=== PATIENT | female | born 1995 | race Caucasian/White ===

== ENCOUNTER 2019-09-18 18:16 | Emergency (ER) | payer SELFPAY ==
[2019-09-18 18:18] VITALS: BP 119/84; PULSE 147; TEMP 36.1; O2SAT 96
--- NOTE | 2019-09-18 19:36 | ECG_ITS ---
Measurements Intervals [place] Rate: 86 P: 65 OR: 106 QRS: 67 QRSD: 78 T: 53 QT: 373 QTc: 447 SINUS RHYTHM WITH SINUS ARRHYTHMIA WITH SHORT OR INTERVAL Compared to ECG 01/16/2017 22:34:29 Sinus tachycardia no longer present Electronically Signed On 09-19-2019 17:10:30 CDT by Dave Self M.D. [id number]
--- NOTE | 2019-09-18 19:37 | XR_ITS ---
WS: [id number] XR chest 1V portable [id number] REASON FOR EXAM: Tachycardia FINDINGS: Nipple rings are seen bilaterally. The lung antonio are adequately aerated. The heart is not enlarged. The hilum and apices normal. No pneumonia, pleural effusion, pulmonary edema, no pneumothorax or mass effects. The hilum and apices show no gross abnormalities. XR/XR chest 1V portable [id number] IMPRESSION: Negative chest for active pathology.
--- NOTE | 2019-09-18 20:00 | CTR_ITS ---
PROCEDURE INFORMATION: Exam: CT Abdomen And Pelvis With Contrast Exam date and time: 09/18/2019 9:08 PM Age: 24 years old Clinical indication: Nausea and vomiting; Abdominal pain; Localized; Upper; Prior surgery; Surgery date: 6+ months; Surgery type: Gb TECHNIQUE: Imaging protocol: Computed tomography of the abdomen and pelvis with intravenous contrast. Radiation optimization: All CT scans at this facility use at least one of these dose optimization techniques: automated exposure control; mA and/or kV adjustment per patient size (includes targeted exams where dose is matched to clinical indication); or iterative reconstruction. Contrast material: OMNI 300; Contrast volume: 75 ml; Contrast route: IV; COMPARISON: CT abdomen pelvis w con* [id number] 09/03/2016 8:30 PM RADIATION DOSE METRICS: Total DLP: 516.11 mGy-cm FINDINGS: Liver: Normal. No mass. Gallbladder and bile ducts: Cholecystectomy. Mild biliary dilation is likely chronic. Pancreas: Normal. No ductal dilation. Spleen: Normal. No splenomegaly. Adrenals: Normal. No mass. Kidneys and ureters: Right kidney punctate nonobstructive calyceal stone. Stomach and bowel: Unremarkable. No obstruction. No mucosal thickening. Appendix: No evidence of appendicitis. Intraperitoneal space: Unremarkable. No free air. No significant fluid collection. Vasculature: Unremarkable. No abdominal aortic aneurysm. Lymph nodes: Unremarkable. No enlarged lymph nodes. Bladder: Unremarkable as visualized. Reproductive: Bilateral ovarian cysts measuring up to 2.7 cm on the right. Bones/joints: Unremarkable. No acute fracture. Soft tissues: Unremarkable. CT/CT abdomen pelvis w con* [id number] IMPRESSION: 1. Negative for acute inflammatory process. 2. Cholecystectomy. 3. Mild biliary dilation is likely chronic. 4. Bilateral ovarian cysts measuring up to 2.7 cm on the right. 5. Right kidney punctate nonobstructive calyceal stone. Radiation Dose CTDIVOL = (mGy): DLP = 516.11 (mGy-cm)
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
[2019-09-18 20:20] LABS: Basophils % 0.2 %; Hematocrit 47.4 % (37.0-47.0); Lymphocytes # 0.4 10^3/uL (0.8-4.8); Lymphocytes % 3.4 %; Mean Corpuscular HGB Conc 33.8 g/dL (30.0-36.0); Mean Corpuscular Hemoglobin 28.8 pg (28.0-34.0); Mean Corpuscular Volume 85.3 fL (81-99); Mean Platelet Volume 10.8 fL (7.4-10.4); Monocytes # 0.8 10^3/uL (0.2-0.9); Monocytes % 6.4 %; Neutrophils # 10.8 10^3/uL (1.8-7.7); Neutrophils % 89.7 %; Nucleated Red Blood Cells % 0 %; Platelet Count 310 10^3/cmm (130-400); Red Blood Count 5.56 10^6/uL (4.1-5.3); Red Cell Distribution Width 12.7 % (12.1-15.1); White Blood Count 12.1 10^3/uL (4.0-10.0)
[2019-09-18] MEDS: ondansetron 2 mg/ML SDV 2 mL 4 MG IVP (20:41)
[2019-09-18] MEDS: sodium chloride 0.9% 1,000 ML 999 ML IV ×2 (20:41→23:27)
[2019-09-18 20:42] VITALS: RESP 16; O2SAT 100
[2019-09-18] MEDS: morphine 4 mg/mL SDV 1 mL IVP (20:42)
[2019-09-18 20:51] LABS: Lactic Sepsis W/Reflex 2.6 mmol/L (0.5-2.2)
[2019-09-18 20:55] LABS: Alanine Aminotransferase 169 U/L (0-33); Albumin Level 5.3 g/dL (3.5-5.2); Alkaline Phosphatase 87 IU/L (35-105); Anion Gap 26.9 (5-19); Aspartate Amino Transferase 124 U/L (0-32); Blood Urea Nitrogen 11 mg/dL (6-20); Calcium 9.8 mg/dL (8.5-10.5); Carbon Dioxide 19 mmol/L (22-29); Chloride 94 mmol/L (98-107); Globulin 2.8 g/dL (1.3-4.6); Glomerular Filtration Rate 89.7 mL/min (90-130); Glucose 90 mg/dL (65-115); Lipase 12 U/L (13-60); Osmolality Calculated 278 mOsm/kg (285-295); Potassium 3.9 mmol/L (3.5-5.1); Sodium 136 mmol/L (136-145); Total Bilirubin 1.8 mg/dL (0.15-1.2); Total Protein 8.1 g/dL (6.6-8.7)
[2019-09-18 21:00] LABS: HCG, Serum Qual Negative (Negative)
[2019-09-18 21:03] VITALS: BP 118/69; PULSE 62; RESP 18; O2SAT 99
[2019-09-18] MEDS: iohexol 300 mg/mL 100 mL Btl IV (21:19)
--- NOTE | 2019-09-18 21:44 | MRR_ITS ---
PROCEDURE INFORMATION: Exam: MR Abdomen Without Contrast Exam date and time: 09/18/2019 9:45 PM Age: 24 years old Clinical indication: Abdominal pain; Additional info: Upper abd pain/elevated lfts/enlarged cbd TECHNIQUE: Imaging protocol: MR of the abdomen without contrast. COMPARISON: CT abdomen pelvis w con* [id number] 09/18/2019 9:17 PM FINDINGS: Liver: No mass. Gallbladder and bile ducts: The extrahepatic bile ducts are normal with the common bile duct measuring 5 mm in diameter. Trace diffuse intrahepatic ductal prominence. No ductal filling defect. Cholecystectomy. Pancreas: Unremarkable. No ductal dilation. Spleen: Unremarkable. No splenomegaly. Adrenals: Unremarkable. No mass. Kidneys and ureters: Unremarkable. No solid mass. No hydronephrosis. Stomach and bowel: Visualized stomach and intestines are unremarkable. Intraperitoneal space: No free fluid. Arteries: No abdominal aortic aneurysm. Bones/joints: Unremarkable. Soft tissues: Unremarkable. MR/MR MRCP [id number] IMPRESSION: 1. Trace intrahepatic ductal dilatation with normal extrahepatic bile ducts. No filling defect. This is most likely normal reservoir effect following cholecystectomy.
[2019-09-18 22:00] LABS: Reflex Lactate Order REFLEX LACTIC ORDERD
[2019-09-18 22:48] LABS: Acetaminophen 24.9 ug/mL (10-30)
[2019-09-18 22:53] LABS: Alcohol Level < 10 mg/dL (0-10); Salicylate < 0.3 mg/dL (3-10)
[2019-09-18 23:09] LABS: Hepatitis A Antibody IgM Non-Reactive (Nonreactive); Hepatitis B Core AB, Total Non-Reactive (Nonreactive); Hepatitis B Surface AB 3.5 (0-8.5); Hepatitis B Surface Antigen Non-Reactive (Nonreactive); Hepatitis C Virus Antibody Non-Reactive (Nonreactive)
[2019-09-18 23:26] VITALS: BP 113/71; PULSE 88; RESP 16; O2SAT 99
[2019-09-18 23:31] LABS: ABG PCO2 34.3 mmHg (35-45); ABG PH Result 7.33 (7.35-7.45); Alveolar-Arterial Oxygen Gradi 14.3 mmHg (5-10); Arterial Blood Gas Hematocrit 45.5 % (37-47); Base Excess ABG -6.8 mmol/L (-2.0-2.0); Blood Gas Allen Test Pos; Blood Gas Sample Site Radial, left; Blood Gas Sample Type Arterial; Carboxyhemoglobin 0.4 %THgb (0.4-20.1); HCO3 ABG 18.2 mmol/L (22-26); HGB O2 Sat 96.5 % (95-100); Ionized Calcium Level - ABG 1.2 mmol/L (1.1-1.4); Methemoglobin 0.9 % (0.4-1.5); Oxygen Saturation ABG 97.7; PO2 ABG 91.6 mmHg (80.0-100.0); Potassium Level - ABG 3.7 mmol/L (3.5-5.0); Total Hemoglobin 14.8 g/dL (12-16)
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
[2019-09-19 00:01] LABS: Lactic Acid level (Lactate) 1.9 mmol/L (0.5-2.2)
[2019-09-19 00:09] LABS: Amphetamines Screen Urine Negative (Negative); Barbiturates Screen Urine Negative (Negative); Benzodiazepines Screen Urine Negative (Negative); Cocaine Screen Urine Negative (Negative); Opiate Screen Urine Positive (Negative); PCP Screen Urine Negative (Negative); THC Screen Urine Negative (Negative)
[2019-09-19 00:11] LABS: Add Urine Microscopic? YES; Bacteria Urine TRACE; Bilirubin Urine Neg (NEGATIVE); Blood Urine Neg (Negative); Glucose Urine UA Norm (Normal); Ketones Urine 3+ (Negative); Leukocyte Esterase Urine Negative (Negative); Nitrate Urine Negative (Negative); Protein Urine 1+ (Negative); RBC Urine 0-4 /hpf (0-2); Squamous Epithelial Cell Urine 0-4 (0-5); Urine Appearance Clear (CLEAR); Urine Color Yellow (Yellow); Urobilinogen Urine 1 mg/dL (Negative); WBC Urine 0-4 /hpf (0-5); pH Urine 5 (5-7)
[2019-09-19 00:25] LABS: Ketone (Acetest) Serum Negative (Negative)
[2019-09-19 00:29] LABS: Alanine Aminotransferase 168 U/L (0-33); Albumin Level 4.3 g/dL (3.5-5.2); Alkaline Phosphatase 70 IU/L (35-105); Anion Gap 18.8 (5-19); Aspartate Amino Transferase 110 U/L (0-32); Blood Urea Nitrogen 8 mg/dL (6-20); Calcium 8.1 mg/dL (8.5-10.5); Carbon Dioxide 20 mmol/L (22-29); Chloride 102 mmol/L (98-107); Globulin 2.3 g/dL (1.3-4.6); Glucose 95 mg/dL (65-115); Osmolality Calculated 280 mOsm/kg (285-295); Potassium 3.8 mmol/L (3.5-5.1); Sodium 137 mmol/L (136-145); Total Bilirubin 1.6 mg/dL (0.15-1.2); Total Protein 6.6 g/dL (6.6-8.7)
--- NOTE | 2019-09-19 00:43 | PM.EVENT ---
Event Note Event Note: Patient left SATYA Amanda is a 24 year old female who has a history of chronic abdominal pain came in today with chief complaint of worsening abdominal pain. Patient is stating that she did not experience any new inciting event for aggravation of pain, she has had 7-8 episodes of nausea and vomiting since yesterday, she did not spike any fever, she did not notice any dysuria, diarrhea or constipation. She is not able to tell me if there was any association of food intake with this abdominal pain. Cholecystectomy was done to see if that would relieve her chronic bone pain which has been unsuccessful so far. Diagnostics in the ER revealed dehydration, high lactic acid no source of infection, CT abdomen was unremarkable, MRCP did not reveal any acute indication for ERCP. Patient is denying recent antibiotic use, she is sexually active, she is not , CT abdomen positive for right ovarian cyst no active signs of peritonitis on physical exam in the ER At the time of my interview she was calm and cooperative, no active abdominal pain, she was able to tolerate her diet. Decision was made to observe her overnight and hydrate her with IV fluids. Patient decided to leave AGAINST MEDICAL ADVICE and stated that she would prefer to stay home and increase her fluid intake. ER doctor was notified
[2019-09-19] MEDS: ondansetron 4 MG Tablet PO (00:55)
[2019-09-19 00:56] VITALS: BP 122/68; PULSE 72; RESP 16; O2SAT 98
[2019-09-19 03:40] LABS: H. Pylori IgG Antibody Negative (Negative)
== END 2019-09-19 01:15 | disposition left against medical advice (07) ==
PROVIDERS: Physician Assistant; Emergency Provider Emergency Medicine; Family Provider Family Medicine
DX: E87.2 Acidosis (principal); E86.0 Dehydration; R11.10 Vomiting, unspecified; Z53.21 Procedure and treatment not carried out due to patient leaving prior to being seen by health care provider; J45.909 Unspecified asthma, uncomplicated; F17.210 Nicotine dependence, cigarettes, uncomplicated
CPT/HCPCS: 12345; 36415; 36600; 71045; 74177; 74181; 80051; 80053; 80306; 80307; 81001; 82009; 82810; 83605; 83690; 83986; 84703; 85025; 86677; 86705; 86706; 86709; 86803; 87340; 93005; 96361; 96374; 96375; 99284; J2270; J2405; J7030; Q0162; Q9967

== ENCOUNTER 2020-01-03 13:31 | Emergency (ER) | payer SELFPAY ==
[2020-01-03 13:44] VITALS: BP 113/75; PULSE 81; RESP 16; TEMP 36.8; O2SAT 99; BMI 21.9
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
[2020-01-03 15:18] LABS: Basophils % 0.4 %; Eosinophils % 0.9 %; Hematocrit 40.5 % (37.0-47.0); Hemoglobin 13.1 g/dL (11.5-15.3); Lymphocytes # 1.1 10^3/uL (0.8-4.8); Lymphocytes % 23.9 %; Mean Corpuscular HGB Conc 32.3 g/dL (30.0-36.0); Mean Corpuscular Hemoglobin 28.1 pg (28.0-34.0); Mean Corpuscular Volume 86.7 fL (81-99); Mean Platelet Volume 10.8 fL (7.4-10.4); Monocytes # 0.4 10^3/uL (0.2-0.9); Monocytes % 7.8 %; Neutrophils # 2.98 10^3/uL (1.8-7.7); Neutrophils % 66.8 %; Nucleated Red Blood Cells % 0 %; Platelet Count 230 10^3/cmm (130-400); Red Blood Count 4.67 10^6/uL (4.1-5.3); Red Cell Distribution Width 12.3 % (12.1-15.1); White Blood Count 4.5 10^3/uL (4.0-10.0)
[2020-01-03 15:53] LABS: HCG Qualitative Urine. Negative (Negative)
[2020-01-03 15:54] LABS: Add Urine Microscopic? YES; Bilirubin Urine Neg (NEGATIVE); Blood Urine Neg (Negative); Glucose Urine UA Norm (Normal); Ketones Urine 1+ (Negative); Leukocyte Esterase Urine 1+ (Negative); Nitrate Urine Negative (Negative); Protein Urine Neg (Negative); Specific Gravity, Urine 1.005 (1.005-1.030); Urine Appearance Hazy (CLEAR); Urine Color Yellow (Yellow); Urobilinogen Urine Norm (Negative); pH Urine 7 (5-7)
[2020-01-03 16:03] LABS: RBC Urine 0-4 /hpf (0-2)
[2020-01-03 16:04] LABS: Add Urine Culture? Yes; Bacteria Urine 2+; Mucus Urine TRACE
[2020-01-03 16:49] VITALS: BP 111/72; PULSE 79; RESP 18; O2SAT 99
== END 2020-01-03 16:50 | disposition home or self-care (01) ==
PROVIDERS: Nurse Practitioner Family; Emergency Provider Emergency Medicine
DX: N92.6 Irregular menstruation, unspecified (principal); F17.210 Nicotine dependence, cigarettes, uncomplicated
CPT/HCPCS: 12345; 36415; 81001; 81025; 85025; 85610; 86850; 86900; 87077; 87086; 87186; 99282

== ENCOUNTER 2020-01-04 17:35 | Emergency (ER) | payer SELFPAY ==
[2020-01-04 17:40] VITALS: BP 114/75; PULSE 83; RESP 18; TEMP 37; O2SAT 99; BMI 21.9
--- NOTE | 2020-01-04 18:26 | US_ITS ---
WS: [id number] EXAM: TRANSABDOMINAL PELVIC SONOGRAM DATE OF EXAMINATION: 01/04/2020, 1930 hours COMPARISON: Pelvic sonogram from 11/10/2016. HISTORY: 24-year-old with pelvic pain and bleeding since 12/21/2019. 1 para 0 FINDINGS: Uterus is estimated at 7.4 x 3.4 x 4.5 cm in size. Anteverted in position. Endometrial stripe is 5.8 mm in thickness. Right ovary is 3.7 x 2.1 x 2.8 cm in size. Left ovary is 2.95 x 1.7 x 2.2 cm in size. Color flow and spectral Doppler demonstrates arterial flow within both ovaries. No free fluid in the cul-de-sac. US/ pelvic limited [id number] IMPRESSION: Normal appearance to the uterus and ovaries. Endometrial stripe 5.8 mm in thickness. No free fluid.
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
[2020-01-04 18:28] LABS: Basophils % 0.6 %; Eosinophils # 0.1 10^3/uL (0.0-0.8); Eosinophils % 1.4 %; Hematocrit 38.5 % (37.0-47.0); Hemoglobin 12.8 g/dL (11.5-15.3); Lymphocytes # 1.3 10^3/uL (0.8-4.8); Lymphocytes % 26.9 %; Mean Corpuscular HGB Conc 33.2 g/dL (30.0-36.0); Mean Corpuscular Hemoglobin 28.7 pg (28.0-34.0); Mean Corpuscular Volume 86.3 fL (81-99); Mean Platelet Volume 10.9 fL (7.4-10.4); Monocytes # 0.5 10^3/uL (0.2-0.9); Monocytes % 9.7 %; Neutrophils # 2.98 10^3/uL (1.8-7.7); Neutrophils % 61.2 %; Nucleated Red Blood Cells % 0 %; Platelet Count 232 10^3/cmm (130-400); Red Blood Count 4.46 10^6/uL (4.1-5.3); Red Cell Distribution Width 12.4 % (12.1-15.1); White Blood Count 4.9 10^3/uL (4.0-10.0)
[2020-01-04 19:03] LABS: Alanine Aminotransferase 11 U/L (0-33); Albumin Level 4.6 g/dL (3.5-5.2); Alkaline Phosphatase 63 IU/L (35-105); Anion Gap 12.6 (5-19); Aspartate Amino Transferase 12 U/L (0-32); Blood Urea Nitrogen 8 mg/dL (6-20); Calcium 8.7 mg/dL (8.5-10.5); Carbon Dioxide 26 mmol/L (22-29); Chloride 104 mmol/L (98-107); Creatinine Clr Calc Pharmacy 150.2773; Globulin 2.6 g/dL (1.3-4.6); Glomerular Filtration Rate 154.3 mL/min (90-130); Glucose 94 mg/dL (65-115); Osmolality Calculated 284 mOsm/kg (285-295); Potassium 3.6 mmol/L (3.5-5.1); Sodium 139 mmol/L (136-145); Total Bilirubin 0.3 mg/dL (0.15-1.2); Total Protein 7.2 g/dL (6.6-8.7)
[2020-01-04 20:27] LABS: Add Urine Microscopic? YES; Bilirubin Urine Neg (NEGATIVE); Blood Urine 2+ (Negative); Glucose Urine UA Norm (Normal); Ketones Urine Negative (Negative); Leukocyte Esterase Urine Negative (Negative); Nitrate Urine Positive (Negative); Protein Urine Neg (Negative); Urine Color Yellow (Yellow); Urobilinogen Urine Norm (Negative); pH Urine 5 (5-7)
[2020-01-04 20:38] LABS: Add Urine Culture? No; Bacteria Urine 4+; Mucus Urine 2+; RBC Urine 0-4 /hpf (0-2); Squamous Epithelial Cell Urine 15-25 (0-5); WBC Urine 0-4 /hpf (0-5)
== END 2020-01-04 21:07 | disposition home or self-care (01) ==
PROVIDERS: Emergency Provider Nurse Practitioner Family
DX: N93.8 Other specified abnormal uterine and vaginal bleeding (principal); N30.90 Cystitis, unspecified without hematuria; F17.210 Nicotine dependence, cigarettes, uncomplicated
CPT/HCPCS: 12345; 76857; 80053; 81001; 85025; 99282; 99283

== ENCOUNTER 2020-03-24 14:33 | Emergency (ER) | payer SELFPAY ==
[2020-03-24 14:44] VITALS: BP 110/74; PULSE 100; RESP 16; TEMP 36.6; O2SAT 100; BMI 20.3
== END 2020-03-24 16:48 | disposition left against medical advice (07) ==
PROVIDERS: Emergency Provider Nurse Practitioner Family
DX: Z53.21 Procedure and treatment not carried out due to patient leaving prior to being seen by health care provider (principal)
CPT/HCPCS: 99281

== ENCOUNTER → 2020-05-13 13:36 | Outpatient (BNVA) | payer SELFPAY | PROVIDERS: Visit Provider Nurse Practitioner Family | DX: Z34.90 Encounter for supervision of normal pregnancy, unspecified, unspecified trimester (principal); Z3A.00 Weeks of gestation of pregnancy not specified | CPT/HCPCS: 81025 ==

== ENCOUNTER → 2020-05-29 11:40 | Outpatient (BNVA) | payer MEDICAID, SELFPAY | PROVIDERS: Visit Provider Nurse Practitioner Women's Health | DX: Z34.80 Encounter for supervision of other normal pregnancy, unspecified trimester (principal); Z34.01 Encounter for supervision of normal first pregnancy, first trimester; J45.20 Mild intermittent asthma, uncomplicated | CPT/HCPCS: 84315; 87077; 87086; 87184 ==

== ENCOUNTER → 2020-06-11 13:47 | Outpatient (BNVA) | payer MEDICAID, SELFPAY | PROVIDERS: Visit Provider Obstetrics & Gynecology | DX: Z34.80 Encounter for supervision of other normal pregnancy, unspecified trimester (principal) | CPT/HCPCS: 80307; 84315; 85027; 86592; 86762; 86803; 86850; 86900; 87077; 87086; 87184; 87340; 87806 ==

== ENCOUNTER → 2020-07-15 11:00 | Outpatient (BNVA) | payer MEDICAID, SELFPAY | PROVIDERS: Visit Provider Obstetrics & Gynecology | DX: O23.40 Unspecified infection of urinary tract in pregnancy, unspecified trimester (principal); Z3A.00 Weeks of gestation of pregnancy not specified | CPT/HCPCS: 84315; 87491; 87591; 87661; 88175 ==

== ENCOUNTER 2020-12-23 22:50 | Outpatient (CLI) | payer BC, MEDICAID, SELFPAY ==
[2020-12-23 22:50] VITALS: BMI 21.2
[2020-12-23 23:08] VITALS: BP 128/82; PULSE 82; RESP 15; TEMP 36.4
[2020-12-23 23:32] LABS: Nitrazine Paper, PH Negative
[2020-12-23 23:35] VITALS: BP 128/82; PULSE 82; RESP 15; TEMP 36.4
== END 2020-12-23 23:35 | disposition home or self-care (01) ==
LOC: OPOB 22:57 → OBGYN 22:58
PROVIDERS: Visit Provider Family Medicine
DX: O26.899 Other specified pregnancy related conditions, unspecified trimester (principal); Z3A.00 Weeks of gestation of pregnancy not specified; N89.8 Other specified noninflammatory disorders of vagina
CPT/HCPCS: 59025; 83986; 99211

== ENCOUNTER 2021-01-11 19:22 | Inpatient (IN) | payer BC, MEDICAID, SELFPAY ==
[2021-01-11] VITALS (7 sets, daily range): BP systolic 119–146; BP diastolic 66–93; PULSE 62–90; RESP 15; TEMP 36.6; O2SAT 100; BMI 21.7
[2021-01-11 20:04] LABS: Basophils # 0.1 10^3/uL (0.0-0.1); Basophils % 0.8 %; Eosinophils # 0.1 10^3/uL (0.0-0.8); Eosinophils % 0.8 %; Hemoglobin 10.3 g/dL (11.5-15.3); Lymphocytes # 1.4 10^3/uL (0.8-4.8); Lymphocytes % 20.8 %; Mean Corpuscular HGB Conc 32.2 g/dL (30.0-36.0); Mean Corpuscular Hemoglobin 25.6 pg (28.0-34.0); Mean Corpuscular Volume 79.4 fl (81-99); Mean Platelet Volume 12.9 fL (7.4-10.4); Monocytes # 0.5 10^3/uL (0.2-0.9); Monocytes % 7.2 %; Neutrophils # 4.66 10^3/uL (1.8-7.7); Neutrophils % 70.1 %; Nucleated Red Blood Cells % 0 %; Platelet Count 174 10^3/cmm (130-400); Red Blood Count 4.03 10^6/uL (4.1-5.3); Red Cell Distribution Width 13.4 % (12.1-15.1); White Blood Count 6.6 10^3/uL (4.0-10.0)
[2021-01-11] MEDS: miSOPROStol 100 mcg tablet 25 MCG VAGINAL (20:09)
[2021-01-11] MEDS: dextrose 5%-lactated ringers 1,000 ML 125 ML IV (20:09)
[2021-01-12] VITALS (55 sets, daily range): BP systolic 83–192; BP diastolic 47–101; PULSE 56–130; RESP 17; TEMP 37.1; O2SAT 99–100
[2021-01-12] MEDS: miSOPROStol 100 mcg tablet 25 MCG VAGINAL (00:16)
[2021-01-12] MEDS: lactated ringers 1,000 ML 999 ML IV ×3 (02:01→07:33)
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
--- NOTE | 2021-01-12 03:29 | P.ANES_ITS ---
Anesthesia Procedures Procedure/Date: 01/12/21 Epidural: Time Out Performed: Yes Consents Signed: Procedure Consent Consent: from patient, risks and benefits reviewed and patient agrees to proceed Lumbar Level: L3-L4 Epidural position: sitting Epidural procedure: sterile prep of area, 1% lidocaine to numb the area, 18 g needle (DONN at 5cm), n eg for paresthesia, test dose given, 1.5% xylocaine 1:200k epi (5cc), 0.2% Ropivacaine bolus ml (4cc and Fentanyl 100mcg), placed PCEA, no systemic response, sterile dressing applied, L.U.D. no apparent complications and 0.2% Ropiavacaine @ mls/hr (11 cc/hour)
[2021-01-12] MEDS: ondansetron 2 mg/ML SDV 2 mL 4 MG IVP (09:00)
--- NOTE | 2021-01-12 10:00 | PM.OPHPUD ---
Labor & Delivery H&P Update Date of Procedure: January 12, 2021 Date H&P Performed: 01/08/21 H&P update information: I have reviewed H&P completed within last 30 days, I have examined patient prior to procedure and No changes to prior documentation Admission Diagnosis: Preop diagnosis: 40-week female presenting for induction due to postdates Related Problem List Diagnoses (1) 40 weeks gestation of :
--- NOTE | 2021-01-12 10:02 | P.PCNOB_ITS ---
Delivery Note: Date of delivery: January 12, 2021 Pre-delivery diagnoses: 25-year-old 2 para 0-0-1-0 at 40 weeks presenting for induction. Post-delivery diagnoses: Status post spontaneous vaginal delivery Procedure: Spontaneous vaginal delivery Op report anesthesia: Epidural Estimated blood loss (mL): 100 Pre-Delivery Course: The patient presented to the hospital the night prior to she was given Cytotec 25 mcg x 2 per vagina. She was GBS negative. Her blood type is O+. An amniotomy was performed. The remainder of her labs were within normal limits. She then progressed to complete without difficulty. . Delivery: DELIVERY: The patient progressed to complete without difficulty. She delivered a male with a weight of 7 pounds 7 ounces with Apgars of 9, 9. The baby was delivered from the MICHAEL position and placed on the mother's abdomen. The cord was then clamped and cut 1 minute after delivery. There was no nuchal cord. There was no meconium. The placenta and 3 vessel cord were delivered i ntact shortly thereafter. The perineum and vaginal vault were carefully examined. A periurethral laceration was noted which was not repaired. Both the mother and the baby were in stable condition. Post-Delivery Status: Good A&P Assessment and plan (1) 40 weeks gestation of : Status: Acute (2) Spontaneous vaginal delivery: Status: Acute Coding Level of Care Code Acute Land Acquisition Analyst for Chg Fwd Diagnoses 40 weeks gestation of Z3A.40 Spontaneous vaginal delivery O80
[2021-01-12] MEDS: benzocaine-menthol 78 gm Canister 1 SPRAY TOPICAL (12:54)
[2021-01-12] MEDS: lanolin oint 7 gm 1 APPLIC TOPICAL (12:55)
[2021-01-12] MEDS: ibuprofen 800 mg tablet PO ×2 (14:46→21:18)
[2021-01-12] MEDS: docusate sodium 100 mg Capsule PO (17:53)
[2021-01-12 22:17] LABS: Hematocrit 31.6 % (37.0-47.0); Mean Corpuscular HGB Conc 31.6 g/dL (30.0-36.0); Mean Corpuscular Hemoglobin 25.6 pg (28.0-34.0); Mean Corpuscular Volume 80.8 fl (81-99); Mean Platelet Volume 12.7 fL (7.4-10.4); Platelet Count 143 10^3/cmm (130-400); Red Blood Count 3.91 10^6/uL (4.1-5.3); Red Cell Distribution Width 13.8 % (12.1-15.1); White Blood Count 11.9 10^3/uL (4.0-10.0)
[2021-01-13 03:48] VITALS: BP 124/80; PULSE 80
--- NOTE | 2021-01-13 06:35 | PM.OBGYDC ---
Discharge Providers BAILING MACHINE OPERATOR Date of Admission: 01/11/21 19:22 Date of Discharge: 01/13/21 Attending Provider at Admission: Johnathan Mi MD Attending Provider at Discharge: Johnathan Mi MD Diagnoses at Discharge Discharge Diagnosis (1) 40 weeks gestation of : Status: Acute (2) Spontaneous vaginal delivery: Status: Acute Reason for Visit Reason for Visit: Scheduled Induction Hospital Course Hospital Course The patient presented to the hospital for induction due to postdates. She is placed on Cytotec 25 mcg per vagina x2. An amniotomy was performed. She then progressed to complete and had an unremarkable delivery of a healthy appearing male . Her course was unremarkable. Her bleeding was within normal limits. Her pain was well controlled. She bottle-fed and breast-fed. Her breast-feeding appeared to be improving during her hospital stay. Information Peripartum Data: Delivery Method: Vaginal Physical Exam Narrative: EXAM NARRATIVE: The patient is alert. She appears comfortable. Her heart has a regular rate and rhythm with no murmurs appreciated. Lungs are clear to auscultation bilaterally. Her fundus is firm and below the umbilicus. Urinary Catheter Management^: Pham: Cath Placed During This Visit: yes Reason for Continuing Indwelling Catheter: Accurate Measurement of Urinary Output in Critically Ill Patients Urinary Catheter Date of Insertion: 01/12/21 Urinary Catheter Time of Insertion: 03:50 Discharge Data Data Completed and Pending: Labs from last 24 hours 01/12/21 22:00 WBC 11.9 H RBC 3.91 L Hgb 10.0 L Hct 31.6 L MCV 80.8 L MCH 25.6 L MCHC 31.6 RDW 13.8 Plt Count 143 MPV 12.7 H Vitals: Last Vital Signs Temp 98.8 F 01/12/21 06:31 Pulse 80 01/13/21 03:48 Resp 17 01/12/21 10:12 BP 124/80 01/13/21 03:48 Pulse Ox 99 01/12/21 03:34 Discharge Plan Discharge Patient Disposition: Home Condition: Stable Prescriptions: New ibuprofen 800 mg Tablet 800 mg PO TID Qty: 45 RF: 0 Continued prenat.vits,cristy,pkg-dplf-zdrma Tablet 1 tab PO DAILY RF: 0 Discharge Orders: Discharge Order (Routine); Ordered 01/13/21 Ordered By: Johnathan Mi Referrals: Johnathan Mi MD [Physician] - 6 Weeks Discharge Diet: Usual diet Discharge Activity: Limit activity as instructed Patient Instructions: Opioid Safety Discharge Attestations BAILING MACHINE OPERATOR Time Spent in Discharge Care*: less than 30 min Specific Discharge Activities: Specific discharge activities: educating patient and educating and/or supporting family/caregiver Coding Level of Care Code Acute Information Technology Administrator for Chg Fwd Diagnoses 40 weeks gestation of Z3A.40 Spontaneous vaginal delivery O80
--- NOTE | 2021-01-13 08:00 | ANE.PACU2 ---
Inpatient post-anesthesia follow up: Airway intact: Yes Vital signs: Temperature 98.6 F Pulse Rate 100 Respiratory Rate 17 Blood Pressure 128/85 Pulse Oximetry 99 Oxygen Delivery Me thod Room Air Oxygen Flow Rate 10 Fraction of Inspir ed Oxygen Hydration adequate: Yes Nausea and vomiting: No Pain level: 2 Mental status: Baseline
[2021-01-13 12:07] VITALS: BP 128/85; PULSE 100
[2021-01-13 13:37] VITALS: BP 128/85; PULSE 100; RESP 17; TEMP 37
== END 2021-01-13 12:30 | disposition home or self-care (01) | DRG 807 ==
LOC: OPOB 19:26 → OBGYN 19:26
PROVIDERS: Admitting Provider Family Medicine; Visit Provider Family Medicine
DX: O48.0 Post-term pregnancy (principal); Z37.0 Single live birth; Z3A.40 40 weeks gestation of pregnancy; O99.334 Smoking (tobacco) complicating childbirth; F17.290 Nicotine dependence, other tobacco product, uncomplicated
CPT/HCPCS: 12345; 51702; 59025; 59409; 85025; 85027; J2405; J2795; J3010

== ENCOUNTER 2022-01-06 17:30 | Emergency (ER) | payer BC, MEDICAID, SELFPAY ==
[2022-01-06 17:37] VITALS: PULSE 97; RESP 16; TEMP 36.8; O2SAT 98
--- NOTE | 2022-01-06 17:42 | ED_ITS ---
HPI - COVID General: Chief Complaint: COVID symptoms Stated Complaint: possible Covid positive Time Seen by Provider: 01/06/22 17:42 Triage information: No fever, cough or shortness of breath . No known COVID + exposure last 14 days History of Present Illness: 26-year-old female comes in today for complaints of COVID positive home test. Patient has been ill since Tuesday and has started feeling better over the last 2 days. Patient comes in for repeat testing due to needing clearance in order to go back to work. Patient works as a trailers and motor homes salesperson. Patient appears nontoxic. Patient appears in no pain. Patient reports just feeling drained. COVID 19 common symptoms: positive fatigue; negative fever(s), dyspnea, nausea or vomiting COVID 19 other sytmptoms: negative chest pain COVID Results: SARS-CoV-2 Antigen (Rapid) Positive (Negative) H 01/06/22 17:4 9 Review of Systems Const: Reports: fatigue; Denies: fever(s) Card: Denies: chest pain Resp: Denies: dyspnea GI: Denies: nausea or vomiting [facility] ED PFSH: Medical History Asthma Mainly had symptoms when she was younger. Used an albuterol inhaler as needed. Denies intubations or hospitalizations for asthma. Last asthma attack was at the age of 20. Compression fracture of T8 vertebra (~2013) Traumatic- 2014 Migraines (~2010) Has had migraines since about 2010 and denies having auras. She initially saw Dr. Nicole and then saw her neurologist Dr. Desai and has been on medication in the past. States that she has not taken any medication for migraines since at least 2018 and just takes Tylenol as needed. No pertinent past medical history Denies diabetes, asthma, hypertension, seizures, DVT/PE. PCP: None Surgical History History of cholecystectomy (~2015) 2016--laparoscopic procedure performed by Dr. Garnica at [facility] [place]. Family History Father Heart disease Stroke Grandmother Heart disease Paternal Hypercholesteremia Paternal Hypertension Paternal Thyroid disease Paternal Denies family history of Colon cancer Ovarian cancer Diabetes Breast cancer Uterine cancer Physical Exam 2 Const: COMMON NORMALS: alert HENMT: COMMON NORMALS: normocephalic and TM's normal bilaterally HEAD & SCALP: normocephalic NOSE: Normal nares present TYMPANIC MEMBRANE: TM's normal bilaterally Neck/C-Spine: COMMON NORMALS: full ROM Resp: COMMON NORMALS: normal respiratory effort and clear to auscultation bilaterally AUSCULTATION: clear to auscultation bilaterally Cardio: COMMON NORMALS: regular rate RATE: regular rate Extremity: COMMON NORMALS: normal to inspection Neuro: SENSORIUM/ORIENTATION: Yes alert Skin: COMMON NORMALS: turgor normal GENERAL SKIN EXAM: turgor normal Course Vital Signs: Vital signs: Vital Signs Temperature 98.3 F 01/06/22 17:37 Pulse Rate 97 01/06/22 17:37 Respiratory Rate 16 01/06/22 17:37 Pulse Oximetry 98 01/06/22 17:37 MDM - COVID Medical Decision Making 26-year-old female comes in today with complaints of fatigue. Patient recently tested positive for COVID-19 on Tuesday. Patient does report improvement in symptoms over the last 2 days. Patient needed verification of the COVID-19 test and a negative in order to return to work. On exam lungs are clear to auscultation, skin is warm and dry, abdomen soft nontender. Vital signs are normal. Differential diagnosis includes COVID-19, viral syndrome, dehydration. COVID-19 test was positive. Reviewed exam and recommendations with patient reported understanding. Lab Data Laboratory Results SARS-CoV-2 Ag (Rapid) Positive (Negative) H 01/06/22 17:49 SARS-CoV-2 Antigen (Rapid) Positive (Negative) H 01/06/22 17:4 9 Discharge Plan Discharge Patient Disposition: Home Clinical Impression: COVID-19 Condition: Stable Prescriptions: No Action prenat.vits,cristy,uoh-htfr-uardy Tablet 1 tab PO DAILY ibuprofen 800 mg Tablet 800 mg PO TID Qty: 45 0RF Discharge Orders: Discharge ED (Routine); Ordered 01/06/22 Ordered By: Gera Jones Discharge Diet: Usual diet Discharge Activity: Increase activity as tolerated Patient Instructions: COVID-19 (Coronavirus Disease 2019) (ED) Activity Restrictions/Additional Instructions: Drink plenty of fluids. Activity as tolerated. Per CDC guidelines it is recommended that quarantine be upheld for 5 days after start of symptoms for COVID-19. At the end of the 5 days you may return to normal activities but you need to wear a facemask for 10 days and as long as you are symptom-free without fever and significant cough or shortness of breath. These only recommendations and employers may have set standards but they follow-up. Follow-up with employee health for further evaluation and recommendations. Drink plenty of fluids. Use acetaminophen and ibuprofen for discomfort. Return to ER for worsening symptoms or new concerns. Coding Level of Care Code ED Fire Equipment Operator for Miguel Fwd Exam Detailed
[2022-01-06 18:39] LABS: SARS Covid-2 Antigen Positive (Negative)
== END 2022-01-06 19:19 | disposition home or self-care (01) ==
PROVIDERS: Emergency Provider Nurse Practitioner Family
DX: U07.1 COVID-19 (principal)
CPT/HCPCS: 87426; 99282

== ENCOUNTER 2022-07-21 13:33 | Outpatient (CLI) | payer BC, MEDICAID, SELFPAY ==
--- NOTE | 2022-07-21 13:30 | US_ITS ---
WS: [id number] OBSTETRICAL ULTRASOUND COMPLETE HISTORY: NORMAL 1ST /2ND TRIMESTER COMPARISON: None available. Single intrauterine gestation in breech presentation. Cervix is Closed and normal length. Cervical length is 4.7 cm. Normal amount of amniotic fluid surrounds the fetus. Placenta: Posterior, no previa or abruption. Placenta grade 0 Heart: 150 BPM. Good position of the fetus four-chamber heart is not well visualized. Normal LVOT. Li mited RVOT LEFT pulmonary artery is not well visualized. Anatomy: Intracranial structures and spine are normal. kidneys, stomach and urinary bladd er are unremarkable. Abdominal wall, three-vessel cord and cord insertion site are normal. 4 extremities are present. profile: Unremarkable. Gender: Male. measurements: BPD = 3.8 cm = 17w5d; HC = 15.4 cm = 18w3d; AC = 13.1 cm = 18w5d; FL = 2.7 cm = 18w1d; EFW: 236 g. Not available. Biometry is internally concordant. AGA by ultrasound: 18w2d MARAH by ultrasound: 12/20/2022 US/US OB >= 14 weeks fetus [id number] IMPRESSION: 1. Single intrauterine gestation of 18w2d with an MARAH of 12/20/2022. 2. Difficulty obtaining an adequate four-chamber heart and RVOT. The remaining anatomy is negative.
== END 2022-07-21 13:34 | disposition home or self-care (01) ==
PROVIDERS: Visit Provider Family Medicine
DX: Z34.02 Encounter for supervision of normal first pregnancy, second trimester (principal); Z3A.18 18 weeks gestation of pregnancy
CPT/HCPCS: 76805

== ENCOUNTER 2022-11-24 20:48 | Outpatient (CLI) | payer BC, MEDICAID, SELFPAY ==
[2022-11-24 20:36] VITALS: BMI 20.5
[2022-11-24 20:56] VITALS: BP 120/73; PULSE 90; TEMP 36.6
[2022-11-24 21:50] VITALS: BP 120/73; PULSE 90; RESP 16; TEMP 36.6
== END 2022-11-24 21:54 | disposition home or self-care (01) ==
LOC: OPOB 20:49 → OBGYN 20:51
PROVIDERS: Visit Provider Family Medicine
DX: O26.899 Other specified pregnancy related conditions, unspecified trimester (principal); R10.9 Unspecified abdominal pain; Z3A.00 Weeks of gestation of pregnancy not specified
CPT/HCPCS: 59025; 99211

== ENCOUNTER 2022-12-05 04:47 | Outpatient (CLI) | payer BC, MEDICAID, SELFPAY ==
[2022-12-05] VITALS (8 sets, daily range): BP systolic 117–130; BP diastolic 75–79; PULSE 86–103; RESP 17; TEMP 36.1; BMI 21.9
== END 2022-12-05 06:32 | disposition home or self-care (01) ==
LOC: OPOB 04:47 → OBGYN 04:48
PROVIDERS: Visit Provider Family Medicine
DX: O47.9 False labor, unspecified (principal); Z3A.00 Weeks of gestation of pregnancy not specified
CPT/HCPCS: 59025; 99211

== ENCOUNTER 2022-12-05 10:07 | Inpatient (IN) | payer BC, MEDICAID, SELFPAY ==
[2022-12-05] VITALS (52 sets, daily range): BP systolic 104–136; BP diastolic 57–91; PULSE 52–118; RESP 16–18; TEMP 36.5–37.1; O2SAT 96–100; BMI 22.6
[2022-12-05 12:11] LABS: Basophils % 0.5 %; Eosinophils # 0.1 10^3/uL (0.0-0.8); Eosinophils % 0.6 %; Hematocrit 28.8 % (37.0-47.0); Hemoglobin 9.2 g/dL (11.5-15.3); Lymphocytes # 0.8 10^3/uL (0.8-4.8); Lymphocytes % 10.4 %; Mean Corpuscular HGB Conc 31.9 g/dL (30.0-36.0); Mean Corpuscular Hemoglobin 24.3 pg (28.0-34.0); Monocytes # 0.5 10^3/uL (0.2-0.9); Neutrophils # 6.55 10^3/uL (1.8-7.7); Neutrophils % 82.4 %; Nucleated Red Blood Cells % 0 %; Platelet Count 174 10^3/cmm (130-400); Red Blood Count 3.79 10^6/uL (4.1-5.3); Red Cell Distribution Width 13.3 % (12.1-15.1)
--- NOTE | 2022-12-05 13:32 | ANES.PREANE2 ---
Pre-Anesthetic Assessment Height/Weight: Height 1.57 m Weight 56.245 kg Pulse BP Pulse Ox O2 Del Method 94 124/70 99 Room Air 12/05/22 13:27 12/05/22 13:27 12/05/22 13:27 12/05/22 10:00 Preop Diagnosis: labor epidural Familial anesthetic complications: none Was Beta Mike taken within 24 hours: N/A Was Clonidine taken within 24 hours: N/A Last Intake: 23:00 Social No alcohol and No tobacco Exam alert, oriented x 3, clear to auscultation bilaterally and regular rate & rhythm Airway Submandibular: within normal limits Cervical ROM: within normal limits Mallampati: Class II Dentition: full (tongue ring) Pulmonary Cough CV/HEM None reported None reported Hepatic None reported GI None reported Metabolic None reported Musc/skel Lower Back Pain (T10 fx in 2013) Neuropsych None reported Anesthetic Plan ASA status: 2 Anesthesia: Regional (specify below) (epidural) Risk of > 500 ml blood loss (7ml/kg in children): No Medications/Allergies Home Medications Medication Instructions Recorded Confirmed Last Taken Type prenat.vits,cristy,ymo-uctl-nyyvl 1 tab PO DAILY 05/29/20 01/11/21 01/11/21 08:00 History ibuprofen 800 mg tablet 800 mg PO TID #45 tabs 01/13/21 Unknown Rx Allergies Allergy/AdvReac Type Severity Reaction Status Date / Time hydrocodone Allergy ALGY-Rash Verified 12/23/20 23:22 [facility] Anesthesia Medical History Asthma Mainly had symptoms when she was younger. Used an albuterol inhaler as needed. Denies intubations or hospitalizations for asthma. Last asthma attack was at the age of 20. Compression fracture of T8 vertebra (~2013) Traumatic- 2014 Migraines (~2010) Has had migraines since about 2010 and denies having auras. She initially saw Dr. Niocle and then saw her neurologist Dr. Desai and has been on medication in the past. States that she has not taken any medication for migraines since at least 2018 and just takes Tylenol as needed. No pertinent past medical history Denies diabetes, asthma, hypertension, seizures, DVT/PE. PCP: None Surgical History History of cholecystectomy (~2016) 2016--lapar[place] [facility] [place] Family History Father Heart disease Stroke Grandmother Heart disease Paternal Hypercholesteremia Paternal Hypertension Paternal Thyroid disease Paternal Denies family history of Colon cancer Ovarian cancer Diabetes Breast cancer Uterine cancer Social History Substance/Drug Use: never Female Reproductive History : 3 Data Anesthesia 12/05/22 10:35 Short CBC 12/05/22 Range/Units 10:35 WBC 8.0 (4.0-10.0) 10^3/uL Hgb 9.2 L (11.5-15.3) g/dL Hct 28.8 L (37.0-47.0) % MCV 76.0 L (81-99) fl Plt Count 174 (130-400) 10^3/cmm Neut % (Auto) 82.4 % Neut # (Auto) 6.55 (1.8-7.7) 10^3/uL Cardiac Studies: No Data to Display
--- NOTE | 2022-12-05 13:56 | ANES.PROC ---
Anesthesia Procedures Procedure/Date: 12/05/22 Epidural: Time Out Performed: Yes Consents Signed: Procedure Consent and NPO Consent Consent: requested by attending/covering physician, from patient, risks and benefits reviewed, patient agrees to proceed and emergency procedure Lumbar Level: L3-L4 Epidural position: sitting Epidural procedure: sterile prep of area (betadine), 1% lidocaine to numb the area (3ml), 18 g needle, neg for paresthesia, test dose given, 1.5% xylocaine 1:200k epi (3ml/2ml), 0.2% Ropivacaine bolus ml (5ml), placed PCEA, no systemic response, sterile dressing applied, L.U.D. no apparent complications and 0.2% Ropiavacaine @ mls/hr (10ml/hr)
[2022-12-05] MEDS: dextrose 5%-lactated ringers 1,000 ML 125 ML IV (14:31)
[2022-12-05] MEDS: ondansetron 2 mg/ML SDV 2 mL 4 MG IVP (15:15)
--- NOTE | 2022-12-05 16:18 | PM.OPHPUD ---
Labor & Delivery H&P Update Date of Procedure: December 05, 2022 Date H&P Performed: 01/08/21 Admission Diagnosis: at 37 weeks 2 days SROM, bloody Preop diagnosis: labor
--- NOTE | 2022-12-05 16:19 | P.PCNOB_ITS ---
Delivery Note: Date of delivery: December 05, 2022 Estimated blood loss (mL): 200 Pre-Delivery Course: The patient had routine care at [facility] with Dr. Mi. labs are currently unavailable Delivery: This is a 27-year-old G3, P1 at 37 weeks 5 days gestation who was admitted to labor and delivery complaining of bleeding. She was found to be spontaneously ruptured with bloody amniotic fluid. She was also in active labor with regular contractions. She was admitted for expectant management. She received an epidural for pain management. She progressed rather quickly on her own and had a normal spontaneous vaginal delivery of a viable male weight 3260 gm 7 pounds 3 ounces Apgars 9 and 9 over an intact perineum. When the infant delivered several blood clots came out with the amniotic fluid. The infant was suctioned at delivery and placed on the mother's chest. The cord was clamped and cut. The placenta was delivered grossly intact and normal to inspection. There were actually no visible areas of abruption. There were no lacerations. Mother and did well after delivery. History History History 1 Term 0 Miscarriages/Ectopic Living Children Coding Level of Care Code Acute Code for Chg Fwd Diagnoses
[2022-12-05] MEDS: benzocaine-menthol 78 gm Canister 1 SPRAY TOPICAL (21:27)
[2022-12-05] MEDS: ibuprofen 800 mg tablet PO (21:28)
[2022-12-05] MEDS: docusate sodium 100 mg Capsule PO (21:28)
[2022-12-06 02:21] VITALS: BP 108/70; PULSE 76; RESP 16; TEMP 36.7
[2022-12-06 04:40] LABS: Hemoglobin 8.8 g/dL (11.5-15.3); Mean Corpuscular HGB Conc 31.4 g/dL (30.0-36.0); Mean Corpuscular Hemoglobin 24.4 pg (28.0-34.0); Mean Corpuscular Volume 77.8 fl (81-99); Mean Platelet Volume 11.6 fL (7.4-10.4); Platelet Count 150 10^3/cmm (130-400); Red Cell Distribution Width 13.4 % (12.1-15.1); White Blood Count 7.4 10^3/uL (4.0-10.0)
--- NOTE | 2022-12-06 08:00 | ANE.PACU2 ---
Inpatient post-anesthesia follow up: Airway intact: Yes Vital signs: Temperature 98.3 F Pulse Rate 77 Respiratory Rate 14 Blood Pressure 125/82 Pulse Oximetry 96 Oxygen Delivery Me thod Room Air Oxygen Flow Rate Fraction of Inspir ed Oxygen Hydration adequate: Yes Nausea and vomiting: Yes Pain level: 1 Mental status: Baseline
[2022-12-06] MEDS: ibuprofen 800 mg tablet PO ×2 (09:16→16:08)
[2022-12-06] MEDS: prenatal vitamin Capsule 1 CAP PO (09:17)
[2022-12-06] MEDS: docusate sodium 100 mg Capsule PO (09:17)
[2022-12-06 09:25] VITALS: BP 117/80; PULSE 65; RESP 14; O2SAT 98
--- NOTE | 2022-12-06 17:29 | P.DS_ITS ---
Discharge Providers Date of Admission: 12/05/22 10:07 Date of Discharge: December 06, 2022 Attending Provider at Admission: Hanna Toledo MD Attending Provider at Discharge: Hanna Toledo MD Reason for Visit Reason for Visit: contractions and bleeding Hospital Course Hospital Course This is a 27-year-old G3 now P2 who was admitted in active labor with spontaneous rupture of membranes. She had a normal spontaneous vaginal delivery of a viable male infant. After delivery mother and did well. On day #1 she was ambulating, tolerating a regular diet, said she had no pain at all and had minimal bleeding. She was comfortable with discharge home Physical Exam Narrative: Alert and oriented, sitting up in bed, heart regular rate and rhythm, lungs clear to auscultation bilaterally, abdomen is soft and nontender, fundus is firm and U -3, extremities have no edema and no calf tenderness Urinary Catheter Management: Pham: Cath Placed During This Visit: yes Urinary Catheter Date of Insertion: 12/05/22 Urinary Catheter Time of Insertion: 13:30 Discharge Data Studies Completed and Pending Laboratory Results WBC 7.4 10^3/uL (4.0-10.0) 12/06/22 04:27 RBC 3.60 10^6/uL (4.1-5.3) L 12/06/22 04:27 Hgb 8.8 g/dL (11.5-15.3) L 12/06/22 04:27 Hct 28.0 % (37.0-47.0) L 12/06/22 04:27 MCV 77.8 fl (81-99) L 12/06/22 04:27 MCH 24.4 pg (28.0-34.0) L 12/06/22 04:27 MCHC 31.4 g/dL (30.0-36.0) 12/06/22 04:27 RDW 13.4 % (12.1-15.1) 12/06/22 04:27 Plt Count 150 10^3/cmm (130-400) 12/06/22 04:27 MPV 11.6 fL (7.4-10.4) H 12/06/22 04:27 Neut % (Auto) 82.4 % 12/05/22 10:35 Lymph % (Auto) 10.4 % 12/05/22 10:35 [place] % (Auto) 6.0 % 12/05/22 10:35 Eos % (Auto) 0.6 % 12/05/22 10:35 Baso % (Auto) 0.5 % 12/05/22 10:35 Neut # (Auto) 6.55 10^3/uL (1.8-7.7) 12/05/22 10:35 Lymph # (Auto) 0.8 10^3/uL (0.8-4.8) 12/05/22 10:35 [place] # (Auto) 0.5 10^3/uL (0.2-0.9) 12/05/22 10:35 Eos # (Auto) 0.1 10^3/uL (0.0-0.8) 12/05/22 10:35 Baso # (Auto) 0.0 10^3/uL (0.0-0.1) 12/05/22 10:35 Nucleated RBC % (auto) 0 % 12/05/22 10:35 Nucleated RBCs # 0.0 /100WBC 12/05/22 10:35 Vitals Last Vital Signs Temp 98.1 F 12/06/22 02:21 Pulse 65 12/06/22 09:25 Resp 14 12/06/22 09:25 BP 117/80 12/06/22 09:25 Pulse Ox 98 12/06/22 09:25 O2 Del Method Room Air 12/06/22 09:25 Discharge Plan Discharge Patient Disposition: Home Condition: Stable Prescriptions: Continued prenat.vits,cristy,jli-wcfk-whzsj Tablet 1 tab PO DAILY ibuprofen 800 mg Tablet 800 mg PO TID Qty: 45 0RF Discharge Orders: Discharge Order (Routine); Ordered 12/06/22 Ordered By: Hanna Toledo Referrals: Johnathan Mi MD [Physician] - 01/18/23 9:00 am (Six week check up with Dr. Mi on 01-18-23 at 9:00 AM) Discharge Diet: Usual diet Discharge Activity: Limit activity as instructed Patient Instructions: Depression (DC), Bleeding (DC), Preeclampsia and Eclampsia After Delivery (GEN), OB Discharge Report, OB Food/Drug Interaction Guide, OB Care at Home, Opioid Safety, OB Vaginal Deliveries Discharge Attestations Time Spent in Discharge Care*: less than 30 min Quality Metrics Clinical Quality Measures [ No reported AMI, CVA or VTE this stay] Coding Level of Care Code Acute Code for Chg Fwd Diagnoses
[2022-12-06 18:15] VITALS: BP 125/82; PULSE 77; TEMP 36.8; O2SAT 96
== END 2022-12-06 18:35 | disposition home or self-care (01) | DRG 807 ==
LOC: OPOB 15:46 → OBGYN 15:46
PROVIDERS: Admitting Provider Family Medicine; Visit Provider Family Medicine
DX: O80 Encounter for full-term uncomplicated delivery (principal); Z37.0 Single live birth; Z3A.37 37 weeks gestation of pregnancy
CPT/HCPCS: 36415; 51702; 59025; 59409; 85025; 85027; 96374; 99211; J2405; J2795; J7121

== ENCOUNTER 2022-12-08 19:38 | Emergency (ER) | payer BC, MEDICAID, SELFPAY ==
[2022-12-08 19:47] VITALS: BMI 20.3
[2022-12-08 19:50] VITALS: BP 125/83; PULSE 91; RESP 17; TEMP 37.2; O2SAT 98
--- NOTE | 2022-12-08 20:05 | W.ED.ABDPA2 ---
HPI - Abdominal Pain General: Chief Complaint: Abdominal Pain Stated Complaint: vaginal bleeding, back pain and abdomen , n/v Time Seen by Provider: 12/08/22 19:48 History of Present Illness: Presents to the ER with complaints of back pain stomach pain nausea vomiting all started today. Patient had a baby approximately 3 days ago vaginally with no complications. States all the symptoms started today. PFS ED PFSH: Medical History Asthma Mainly had symptoms when she was younger. Used an albuterol inhaler as needed. Denies intubations or hospitalizations for asthma. Last asthma attack was at the age of 20. Compression fracture of T8 vertebra (~2013) Traumatic- 2014 Migraines (~2010) Has had migraines since about 2010 and denies having auras. She initially saw Dr. Nicole and then saw her neurologist Dr. Desai and has been on medication in the past. States that she has not taken any medication for migraines since at least 2017 and just takes Tylenol as needed. No pertinent past medical history Denies diabetes, asthma, hypertension, seizures, DVT/PE. PCP: None Surgical History History of cholecystectomy (~2015) 2016--laparoscopic procedure performed by Dr. Garnica at [facility] [place]. Family History Father Heart disease Stroke Grandmother Heart disease Paternal Hypercholesteremia Paternal Hypertension Paternal Thyroid disease Paternal Denies family history of Colon cancer Ovarian cancer Diabetes Breast cancer Uterine cancer Social History Substance/Drug Use: never Physical Exam Const: COMMON NORMALS: average body habitus, patient oriented x3, no limitations, healthy appearing, alert and well nourished HENMT: COMMON NORMALS: normocephalic, atraumatic, hearing grossly normal bilaterally, external ears normal, Normal external nose present and moist oral mucous membranes HEAD & SCALP: normocephalic and atraumatic NOSE: Normal external nose present EXTERNAL EAR: Yes external ears normal Neck/C-Spine: COMMON NORMALS: full ROM, no lymphadenopathy, supple, no meningeal signs, no JVD and Thyroid normal THYROID: Thyroid normal Chest: COMMONS NORMALS: normal inspection of the chest and normal palpation of entire chest wall Resp: COMMON NORMALS: normal respiratory effort, No retractions, No use of accessory muscles and clear to auscultation bilaterally AUSCULTATION: clear to auscultation bilaterally Cardio: COMMON NORMALS: no JVD, regular rate, regular rhythm, S1 normal heart sound present, S2 normal heart sound present, No gallops present (Cardio), No clicks present (Cardio), No murmurs present (Cardio) and No rub (Cardio) RATE: regular rate RHYTHM: regular rhythm HEART SOUNDS: S1 normal heart sound present and S2 normal heart sound present GI: COMMON NORMALS: Normal to inspection, nondistended, normoactive bowel sounds present, Soft to palpation, No hepatosplenomegaly present and no masses; negative for non-tender (Generalized tenderness to palpation.) PALPATION: Yes Soft to palpation and Yes No hepatosplenomegaly present Back/Pelvis: OTHER: Generalized tenderness to palpation over lumbar paraspinal musculature. No point tenderness over vertebra. Neuro: COMMON NORMALS: patient oriented x3 SENSORIUM/ORIENTATION: Yes alert MENINGEAL SIGNS: Yes no meningeal signs Course Vital Signs: Vital signs: Vital Signs Temperature 98.9 F 12/08/22 19:50 Pulse Rate 91 12/08/22 19:50 Respiratory Rate 17 12/08/22 19:50 Blood Pressure 125/83 12/08/22 19:50 Pulse Oximetry 98 12/08/22 19:50 Oxygen Delivery Me thod Room Air 12/08/22 19:50 MDM - Abdominal Pain Medical Decision Making Presented with back pain and nausea vomiting. Patient was given 30 mg Toradol IV and 8 mg Zofran along with a liter normal saline which helped her pain nausea vomiting for a while. Then the pain came back patient was given 4 mg of morphine. Patient be discharged home with a prescription for Zofran and is to follow-up with her PCP in approximately 7 days or sooner as needed. Differential Diagnosis Likely abdominal pain; Unlikely acute appendicitis, calculus of kidney, constipation, diverticulitis, endometriosis, gastroenteritis, pancreatitis or small bowel obstruction Medical Records I reviewed the patient's medical records. Lab Data I reviewed the patient's lab results. 12/08/22 19:55 12/08/22 19:55 Labs/Radiology: Laboratory Results WBC 7.0 10^3/uL (4.0-10.0) 12/08/22 19:55 RBC 4.15 10^6/uL (4.1-5.3) 12/08/22 19:55 Hgb 10.0 g/dL (11.5-15.3) L 12/08/22 19:55 Hct 31.9 % (37.0-47.0) L 12/08/22 19:55 MCV 76.9 fl (81-99) L 12/08/22 19:55 MCH 24.1 pg (28.0-34.0) L 12/08/22 19:55 MCHC 31.3 g/dL (30.0-36.0) 12/08/22 19:55 RDW 13.7 % (12.1-15.1) 12/08/22 19:55 Plt Count 195 10^3/cmm (130-400) 12/08/22 19:55 MPV 11.3 fL (7.4-10.4) H 12/08/22 19:55 Neut % (Auto) 85.4 % 12/08/22 19:55 Lymph % (Auto) 9.0 % 12/08/22 19:55 [place] % (Auto) 4.1 % 12/08/22 19:55 Eos % (Auto) 1.1 % 12/08/22 19:55 Baso % (Auto) 0.3 % 12/08/22 19:55 Neut # (Auto) 6.00 10^3/uL (1.8-7.7) 12/08/22 19:55 Lymph # (Auto) 0.6 10^3/uL (0.8-4.8) L 12/08/22 19:55 [place] # (Auto) 0.3 10^3/uL (0.2-0.9) 12/08/22 19:55 Eos # (Auto) 0.1 10^3/uL (0.0-0.8) 12/08/22 19:55 Baso # (Auto) 0.0 10^3/uL (0.0-0.1) 12/08/22 19:55 Nucleated RBC % (auto) 0 % 12/08/22 19:55 Nucleated RBCs # 0.0 /100WBC 12/08/22 19:55 Sodium 138 mmol/L (136-145) 12/08/22 19:55 Potassium 3.4 mmol/L (3.5-5.1) L 12/08/22 19:55 Chloride 103 mmol/L (98-107) 12/08/22 19:55 Carbon Dioxide 22 mmol/L (22-29) 12/08/22 19:55 Anion Gap 16.4 (5-19) 12/08/22 19:55 BUN 8 mg/dL (6-20) 12/08/22 19:55 Creatinine 0.6 mg/dL (0.5-0.9) 12/08/22 19:55 GFR Calculation 121.8 mL/min (90-130) 12/08/22 19:55 Glucose 100 mg/dL (65-115) 12/08/22 19:55 Calculated Osmolality 284 mOsm/kg (285-295) L 12/08/22 19:55 Calcium 8.4 mg/dL (8.5-10.5) L 12/08/22 19:55 Total Bilirubin 0.2 mg/dL (0.15-1.2) 12/08/22 19:55 AST 20 U/L (0-32) 12/08/22 19:55 ALT 14 U/L (0-33) 12/08/22 19:55 Alkaline Phosphatase 125 U/L (35-105) H 12/08/22 19:55 Total Protein 6.6 g/dL (6.6-8.7) 12/08/22 19:55 Albumin 3.6 g/dL (3.5-5.2) 12/08/22 19:55 Globulin 3.0 g/dL (1.3-4.6) 12/08/22 19:55 Urine Color Yellow (Yellow) 12/08/22 21:02 Urine Appearance Cloudy (CLEAR) A 12/08/22 21:02 Urine pH 7 (5-7) 12/08/22 21:02 Ur Specific [place] 1.015 (1.005-1.030) 12/08/22 21:02 Urine Protein 1+ (Negative) H 12/08/22 21:02 Urine Glucose (UA) Norm (Normal) 12/08/22 21:02 Urine Ketones 2+ (Negative) H 12/08/22 21:02 Urine Blood 3+ (Negative) H 12/08/22 21:02 Urine Nitrate Negative (Negative) 12/08/22 21:02 Urine Bilirubin Neg (Negative) 12/08/22 21:02 Urine Urobilinogen 4 mg/dL (Negative) H 12/08/22 21:02 Ur Leukocyte Esterase Trace (Negative) H 12/08/22 21:02 Urine RBC 40-50 /hpf (0-2) H 12/08/22 21:02 Urine WBC 5-10 /hpf (0-5) H 12/08/22 21:02 Ur Squamous Epith Cells 0-4 /hpf (0-5) H 12/08/22 21:02 Amorphous Sediment Not Reportable 12/08/22 21:02 Urine Bacteria None /hpf (NONE) 12/08/22 21:02 Urine Mucus 2+ /hpf 12/08/22 21:02 Discharge Plan Discharge Patient Disposition: Home Clinical Impression: Low back pain Qualifiers: Chronicity: acute Back pain laterality: unspecified Sciatica presence: without sciatica Qualified Code(s): M54.50 - Low back pain, unspecified Nausea & vomiting Qualifiers: Vomiting type: unspecified Qualified Code(s): R11.2 - Nausea with vomiting, unspecified Condition: Stable Prescriptions: New ondansetron HCl 4 mg tablet 4 mg PO TID PRN (Reason: nausea and vomiting) Qty: 14 0RF No Action prenat.vits,cristy,dli-mqkh-iqxse Tablet 1 tab PO DAILY ibuprofen 800 mg Tablet 800 mg PO TID Qty: 45 0RF Discharge Orders: Discharge ED (Routine); Ordered 12/08/22 Ordered By: Frank Velásquez Patient Instructions: Acute Nausea and Vomiting (DC), Acute Low Back Pain (ED) Activity Restrictions/Additional Instructions: Take all medicine as prescribed. Please push clear fluids and then advance diet as tolerated. Please follow-up with family practice doctor in approximately 7 days or sooner as needed. Coding Level of Care Code ED Project Manager/Team Coach for Miguel Vargas
[2022-12-08 20:20] LABS: Basophils % 0.3 %; Eosinophils # 0.1 10^3/uL (0.0-0.8); Eosinophils % 1.1 %; Hematocrit 31.9 % (37.0-47.0); Lymphocytes # 0.6 10^3/uL (0.8-4.8); Mean Corpuscular HGB Conc 31.3 g/dL (30.0-36.0); Mean Corpuscular Hemoglobin 24.1 pg (28.0-34.0); Mean Corpuscular Volume 76.9 fl (81-99); Mean Platelet Volume 11.3 fL (7.4-10.4); Monocytes # 0.3 10^3/uL (0.2-0.9); Monocytes % 4.1 %; Neutrophils % 85.4 %; Nucleated Red Blood Cells % 0 %; Platelet Count 195 10^3/cmm (130-400); Red Blood Count 4.15 10^6/uL (4.1-5.3); Red Cell Distribution Width 13.7 % (12.1-15.1)
[2022-12-08] MEDS: ondansetron 2 mg/ML SDV 2 mL 8 MG IVP (20:22)
[2022-12-08] MEDS: ketorolac 30 mg/mL INJ IVP (20:23)
[2022-12-08] MEDS: sodium chloride 0.9% 1,000 ML 999 ML IV (20:23)
[2022-12-08 20:41] LABS: Alanine Aminotransferase 14 U/L (0-33); Albumin Level 3.6 g/dL (3.5-5.2); Alkaline Phosphatase 125 U/L (35-105); Anion Gap 16.4 (5-19); Aspartate Amino Transferase 20 U/L (0-32); Blood Urea Nitrogen 8 mg/dL (6-20); Calcium 8.4 mg/dL (8.5-10.5); Carbon Dioxide 22 mmol/L (22-29); Chloride 103 mmol/L (98-107); Glomerular Filtration Rate 121.8 mL/min (90-130); Glucose 100 mg/dL (65-115); Osmolality Calculated 284 mOsm/kg (285-295); Potassium 3.4 mmol/L (3.5-5.1); Sodium 138 mmol/L (136-145); Total Bilirubin 0.2 mg/dL (0.15-1.2); Total Protein 6.6 g/dL (6.6-8.7)
[2022-12-08 21:12] LABS: Bilirubin Urine Neg (Negative); Blood Urine 3+ (Negative); Glucose Urine UA Norm (Normal); Ketones Urine 2+ (Negative); Nitrate Urine Negative (Negative); Protein Urine 1+ (Negative); Specific Gravity, Urine 1.015 (1.005-1.030); Urine Appearance Cloudy (CLEAR); Urine Color Yellow (Yellow); Urobilinogen Urine 4 mg/dL (Negative); pH Urine 7 (5-7)
[2022-12-08 21:13] LABS: Add Urine Microscopic? YES; Leukocyte Esterase Urine Trace (Negative)
[2022-12-08 21:14] LABS: RBC Urine 40-50 /hpf (0-2); Squamous Epithelial Cell Urine 0-4 /hpf (0-5)
[2022-12-08 21:15] LABS: Add Urine Culture? Yes; Mucus Urine 2+ /hpf
[2022-12-08 22:00] VITALS: RESP 17
[2022-12-08] MEDS: morphine 4 mg/mL SDV 1 mL IVP (22:00)
--- NOTE | 2022-12-09 08:50 | DCPLANNER ---
manager marketing sales called patient due to no primary care physician - no answer at this time
== END 2022-12-08 22:16 | disposition home or self-care (01) ==
PROVIDERS: Emergency Provider Emergency Medicine
DX: M54.50 Low back pain, unspecified (principal); R11.2 Nausea with vomiting, unspecified; J45.909 Unspecified asthma, uncomplicated
CPT/HCPCS: 80053; 81001; 85025; 87077; 87086; 87186; 96374; 96375; 99284; J1885; J2270; J2405; J7030

== ENCOUNTER → 2023-03-21 14:27 | Outpatient (BNVA) | payer BC, MEDICAID, SELFPAY | PROVIDERS: Visit Provider Family Medicine | DX: Z78.9 Other specified health status (principal); Z71.89 Other specified counseling | CPT/HCPCS: 81025 ==

== ENCOUNTER 2023-04-12 21:20 | Emergency (ER) | payer SELFPAY ==
[2023-04-12 21:23] VITALS: BP 136/63; PULSE 109; RESP 16; TEMP 36.7; O2SAT 99
--- NOTE | 2023-04-12 21:51 | ED_ITS ---
HPI - Allergic Reaction General: Chief complaint: Allergic Reaction Stated complaint: allergic reaction Time Seen by Provider: 04/12/23 21:28 History of Present Illness: HPI narrative: 28-year-old female comes in today with c omplaints of urticarial rash all over and difficulty swallowing. Patient had taken 800 mg of ibuprofen for a migraine headache. Shortly after taking the medication patient broke out in hives. Patient also reports difficulty swallowing. Patient appears anxious. Patient appears nontoxic. Airway is intact. Patient speaking in full sentences. No significant swelling is noted of the face and mouth. Associated symptoms: Reports nausea Review of Systems General: Reports: 10 or more systems reviewed and unremarkable except in HPI and below Const: Denies: fever(s) ENMT: Reports: swelling of lips/tongue (Sensation) Card: Denies: chest pain Resp: Denies: dyspnea GI: Reports: nausea Skin/Breast: Reports: rash PFSH ED PFSH: Medical History Asthma Mainly had symptoms when she was younger. Used an albuterol inhaler as needed. Denies intubations or hospitalizations for asthma. Last asthma attack was at the age of 20. Compression fracture of T8 vertebra (~2013) Traumatic- 2014 Migraines (~2010) Has had migraines since about 2010 and denies having auras. She initially saw Dr. Nicole and then saw her neurologist Dr. Desai and has been on medication in the past. States that she has not taken any medication for migraines since at least 2018 and just takes Tylenol as needed. Surgical History History of cholecystectomy (~2015) 2016--laparoscopic procedure performed by Dr. Garnica at [facility] [place]. Family History Father Heart disease Stroke Grandmother Heart disease Paternal Hypercholesteremia Paternal Hypertension Paternal Thyroid disease Paternal Denies family history of Colon cancer Ovarian cancer Diabetes Breast cancer Uterine cancer Social History Smoking and tobacco/nicotine status: never used tobacco/nicotine Alcohol intake: never Substance/Drug Use: never Physical Exam Const: COMMON NORMALS: alert HENMT: COMMON NORMALS: normocephalic HEAD & SCALP: normocephalic MOUTH: Normal oral and palatal mucosa present THROAT: posterior oropharynx normal Neck/C-Spine: COMMON NORMALS: full ROM Resp: COMMON NORMALS: normal respiratory effort and clear to auscultation bilaterally AUSCULTATION: clear to auscultation bilaterally Cardio: COMMON NORMALS: regular rate and regular rhythm RATE: regular rate RHYTHM: regular rhythm GI: COMMON NORMALS: Soft to palpation and non-tender PALPATION: Yes Soft to palpation Back/Pelvis: COMMON NORMALS: thoracic and lumbar spine normal to inspection Extremity: COMMON NORMALS: full ROM Neuro: SENSORIUM/ORIENTATION: Yes alert Skin: RASHES: rashes noted (Generalized urticaria) Course Vital Signs: Vital signs: Vital Signs Temperature 98.1 F 04/12/23 21:23 Pulse Rate 109 H 04/12/23 21:23 Respiratory Rate 16 04/12/23 21:23 Blood Pressure 136/63 04/12/23 21:23 Pulse Oximetry 99 04/12/23 21:23 Oxygen Delivery Me thod Room Air 04/12/23 21:23 MDM - Allergic Reaction Medical Decision Making Patient comes in today with complaints of urticaria, feeling of facial swelling, and difficulty swallowing. Patient appears nontoxic. On exam there is no obvious swelling or or airway compromise. Abdomen soft nontender. Generalized urticaria confluent rash. Differential diagnosis includes anaphylaxis, allergic reaction, respiratory failure, anxiety. Patient's rash cleared. Symptoms of difficulty swallowing and itching throat resolved. Lungs remain clear to auscultation. Patient was stable. Reviewed exam with patient recommendations for further treatment. Patient reported understanding and agreed to plan and was discharged home. No radiology studies performed this visit Discharge Plan Discharge Patient Disposition: Home Clinical Impression: Allergic reaction Qualifiers: Encounter type: initial encounter Qualified Code(s): T78.40XA - Allergy, unspecified, initial encounter Condition: Stable Prescriptions: No Action No Known Home Medications medroxyprogesterone [Depo-Provera] 150 mg/mL syringe 150 mg IM ONCE Qty: 1 2RF Discharge Orders: Discharge ED (Routine); Ordered 04/12/23 Ordered By: Gera Jones Referrals: Funmilayo Lorenzo DO [Primary Care Provider] - Discharge Diet: Usual diet Discharge Activity: Increase activity as tolerated Patient Instructions: Allergic Reaction Activity Restrictions/Additional Instructions: Use Benadryl, diphenhydramine, as needed for itching or rash. If Benadryl makes you too sleepy you could always use Claritin or Zyrtec 1 or 2 tablets twice a day to control rash and itching. Drink plenty of water with medications. Avoid ibuprofen containing products. Follow-up with primary care for further instructions. Return to ED for new concerns. Coding Level of Care Code ED Game Agent for Miguel Vargas
[2023-04-12] MEDS: methylPREDNISolone sod succ 125 mg/2 mL INJ IVP (22:05)
[2023-04-12] MEDS: diphenhydrAMINE 50 mg/mL SDV 1mL 25 MG IVP (22:07)
[2023-04-12] MEDS: famotidine 20 mg Tablet PO (22:10)
[2023-04-12] MEDS: EPINEPHrine 1 mg/mL INJ 0.3 MG IM (22:11)
[2023-04-12 22:58] VITALS: BP 136/63; PULSE 109; RESP 16; TEMP 36.7; O2SAT 99
== END 2023-04-12 22:58 | disposition home or self-care (01) ==
PROVIDERS: Emergency Provider Nurse Practitioner Family; PCP Family Medicine
DX: T78.40XA Allergy, unspecified, initial encounter (principal); X58.XXXA Exposure to other specified factors, initial encounter
CPT/HCPCS: 96372; 96374; 96375; 99284; J0171; J1200; J2930

== ENCOUNTER → 2023-06-10 14:26 | Outpatient (BNVA) | payer OTHER, SELFPAY | PROVIDERS: PCP Family Medicine; Visit Provider Family Medicine | DX: G43.711 Chronic migraine without aura, intractable, with status migrainosus (principal) | CPT/HCPCS: 80053; 84443; 85025 ==

== ENCOUNTER 2023-06-15 13:02 | Outpatient (CLI) | payer OTHER, BC, MEDICAID, SELFPAY ==
[2023-06-22 18:59] LABS: Acetylcholine Receptor Block 38 (<15)
[2023-06-24 17:10] LABS: Acetylcholine Receptor Binding 27.44 nmol/L
[2023-07-08 16:35] LABS: Acetylcholine Recept Modulatin 88
== END 2023-06-15 13:03 | disposition home or self-care (01) ==
LOC: LAB 13:02
PROVIDERS: PCP Family Medicine; Visit Provider Family Medicine
DX: H53.2 Diplopia (principal); H02.402 Unspecified ptosis of left eyelid
CPT/HCPCS: 36415; 83516; 83519

== ENCOUNTER 2023-07-07 13:30 | Outpatient (CLI) | payer OTHER, BC, MEDICAID, SELFPAY ==
--- NOTE | 2023-07-07 13:40 | MR_ITS ---
WS: [id number] MRI BRAIN WITH AND WITHOUT CONTRAST HISTORY: Change in migraine COMPARISON: None available. TECHNIQUE: Multiplanar imaging performed through the brain with MultiHance 11 ml's IV. No acute infarcts are seen. Coronel-white matter differentiation is well preserved. No susceptibility artifacts or prior lacunar infarcts. Ventricles and extra-axial spaces are normal. Clivus and pituitary gland are normal. Visualized posterior fossa and brainstem are also normal. Mild ectopia of the cerebellar tonsils. No Chiari malformation. Postcontrast images are negative for masses or vascular malformations. Dural venous sinuses are normal. Paranasal sinuses: Well aerated with no significant disease. Mastoid air cells: Normal. Calvarium and scalp: Normal. IMPRESSION: 1. Normal MRI brain with contrast.
[2023-07-07] MEDS: gadobenate dimeglumine 20 mL vial IV (14:16)
== END 2023-07-07 13:31 | disposition home or self-care (01) ==
LOC: RAD 13:32
PROVIDERS: PCP Family Medicine; Visit Provider Family Medicine
DX: G43.711 Chronic migraine without aura, intractable, with status migrainosus (principal); G62.89 Other specified polyneuropathies
CPT/HCPCS: 70553; A9577

== ENCOUNTER 2023-07-20 08:50 | Outpatient (CLI) | payer OTHER, BC, MEDICAID, SELFPAY ==
--- NOTE | 2023-07-20 09:00 | CT_ITS ---
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 Coronal and sagittal reformats are submitted. All CT scans at [facility] use at least one of these dose optimization techniques: automated exposure control; mA and/or kV adjustment per patient size (includes targeted exams where dose is mat ched to clinical indication); or iterative reconstruction. CONTRAST: Omnipaque 350; 75 mL IV. DLP: 182.44 mGy.cm COMPARISON: 10/01/2015 Lungs and central airway: Lungs are mildly hyperinflated. 5 mm LEFT perifissural nodule was also seen in 2016. Additional fissural nodules along the RIGHT fissure. Stable 3 mm nodule LEFT lower lobe, im age 36 of series 4 and also in the RIGHT middle lobe, image 34 series 4. No mass or pneumonia. Pleura: Normal. No pleural effusion. Heart and pericardium: Normal size heart with no pericardial effusion. Mediastinum and soni: No mediastinum or hilar adenopathy. No significant mass in the anterior mediast inum. There is a small amount of increased soft tissue in the expected location of the thymus measuri ng 4 x 11 mm. Normal triangular configuration of an expected thymic gland. Vessels: Normal size aortic and pulmonary artery. No coronary artery calcifications. Chest wall and lower neck: No soft tissue masses. Upper abdomen: Prior cholecystectomy. Osseous structures: No destructive process. IMPRESSION: 1. Lungs are slightly hyperinflated. There are several small micronodules and fissural nodules which are stable since 2016. 2. Minimal triangular shaped soft tissue in the anterior mediastinum consistent with normal thymus. No mass. 3. Prior cholecystectomy.
[2023-07-20] MEDS: iohexol 350 mg/mL 500 mL Btl (per mL) IV (09:18)
== END 2023-07-20 08:51 | disposition home or self-care (01) ==
LOC: RAD 08:50
PROVIDERS: PCP Family Medicine; Visit Provider Psychiatry & Neurology Neurology
DX: E32.9 Disease of thymus, unspecified (principal); R91.8 Other nonspecific abnormal finding of lung field; Z90.49 Acquired absence of other specified parts of digestive tract
CPT/HCPCS: 71260; Q9967

== ENCOUNTER 2023-08-18 11:24 | Outpatient (CLI) | payer OTHER, BC, MEDICAID, SELFPAY ==
[2023-08-18 12:39] LABS: 25 Hydroxy Vitamin D 14 ng/mL (30-100); Vitamin B12 312 pg/mL (232-1245)
[2023-08-18 12:43] LABS: Folate Level 9.2 ng/mL (4.8-37.3)
[2023-08-23 12:38] LABS: Methylmalonic Acid 147 nmol/L (87-318)
[2023-08-25 18:43] LABS: Acetylcholine Receptor Block 48 (<15)
[2023-09-08 13:48] LABS: Acetylcholine Receptor Binding 29.02 nmol/L
[2023-09-09 16:20] LABS: Acetylcholine Recept Modulatin 85
== END 2023-08-18 11:25 | disposition home or self-care (01) ==
LOC: LAB 11:26
PROVIDERS: PCP Family Medicine; Visit Provider Psychiatry & Neurology Neurology
DX: G62.89 Other specified polyneuropathies (principal); R53.1 Weakness; H53.8 Other visual disturbances; H53.2 Diplopia; G43.711 Chronic migraine without aura, intractable, with status migrainosus; G70.00 Myasthenia gravis without (acute) exacerbation
CPT/HCPCS: 36415; 82306; 82607; 82746; 83516; 83519; 83735; 83921

== ENCOUNTER 2024-03-25 15:26 | Emergency (ER) | payer MEDICAID, SELFPAY ==
[2024-03-25 15:50] VITALS: BP 122/84; PULSE 91; RESP 16; TEMP 36.7; O2SAT 98; BMI 17.6
--- NOTE | 2024-03-25 16:31 | CTR_ITS ---
PROCEDURE INFORMATION: Exam: CT Head Without Contrast Exam date and time: 03/25/2024 4:45 PM Age: 29 years old Clinical indication: Pain; Headache not specified TECHNIQUE: Imaging protocol: Computed tomography of the head without contrast. Axial, coronal and sagittal reformatted images were created and reviewed. Radiation optimization: All CT scans at this facility use at least one of these dose optimization techniques: automated exposure control; mA and/or kV adjustment per patient size (includes targeted exams where dose is matched to clinical indication); or iterative reconstruction. COMPARISON: MR head wo/w con [id number] 07/07/2023 1:46 PM RADIATION DOSE METRICS: Total DLP (mGy-cm): 917.88 FINDINGS: Brain: No CT evidence of acute intracranial hemorrhage or acute territorial infarction. No significant mass effect or midline shift. Basal cisterns patent. Cerebral ventricles: Normal in size and configuration. Paranasal sinuses: Unremarkable. No fluid levels. Mastoid air cells: Grossly unremarkable. Bones: Unremarkable. No acute fracture. Soft tissues: Grossly unremarkable. CT/CT head wo con* [id number] IMPRESSION: No CT evidence of acute intracranial pathology.
[2024-03-25] MEDS: prochlorperazine 10 mg/2 mL Inj 5 MG IVP (17:26)
--- NOTE | 2024-03-25 18:02 | ED_ITS ---
HPI - Headache General: Chief Complaint: Headache Stated Complaint: headache, blurred/dbl vision/pressure Time Seen by Provider: 03/25/24 15:55 History of Present Illness: This patient is a 29-year-old white female who presents to the ER stating that she has had a migraine for 2 weeks. She has had some visual changes and has noted some medial deviation of the left eye. She is having headache behind both eyes and also in the occipital area. She does have a history of migraines and myasthenia gravis. She has not had any associated nausea or vomiting. No fever. Related Data Previous Rx's Medication Instructions Recorded epinephrine 0.3 mg/0.3 mL 0.3 mg (0.3 mL) IM Q10M PRN 04/12/23 injection, auto-injector (EpiPen) anaphylaxis #2 ea cholecalciferol (vitamin D3) 1,250 50,000 unit PO ONCE #14 caps 08/19/23 mcg (50,000 unit) capsule medroxyprogesterone 150 mg/mL See Rx Instructions .Route 11/24/23 intramuscular suspension .COMPLEX #1 mL Allergies Allergy/AdvReac Type Severity Reaction Status Date / Time ibuprofen Allergy ALGY-Hives Verified 03/25/24 15:50 Review of Systems General: Reports: 10 or more systems reviewed and unremarkable except in HPI and below Neuro: Reports: headache(s) and other (Visual changes and deviation of the left eye medially.) [facility] ED PFSH: Medical History Compression fracture of T8 vertebra (~2013) Traumatic- 2013 Migraines (~2010) Has had migraines since about 2010 and denies having auras. She initially saw Dr. Nicole and then saw her neurologist Dr. Desai and has been on medication in the past. States that she has not taken any medication for migraines since at least 2018 and just takes Tylenol as needed. Asthma Mainly had symptoms when she was younger. Used an albuterol inhaler as needed. Denies intubations or hospitalizations for asthma. Last asthma attack was at the age of 20. Surgical History History of cholecystectomy (~2015) 2016--laparoscopic procedure performed by Dr. Garnica at [facility]. Family History Father Heart disease Stroke Grandmother Heart disease Paternal Hypercholesteremia Paternal Hypertension Paternal Thyroid disease Paternal Other Weakness Denies family history of Colon cancer Ovarian cancer Diabetes Breast cancer Uterine cancer Social History Smoking and tobacco/nicotine status: never used tobacco/nicotine Alcohol intake: never Substance/Drug Use: never Physical Exam Const: COMMON NORMALS: patient oriented x3 and no limitations GENERAL APPEARANCE: cooperative and comfortable HENMT: COMMON NORMALS: normocephalic, atraumatic, Normal nasal mucous membranes and turbinates present, moist oral mucous membranes and oropharynx normal HEAD & SCALP: normal to inspection, normocephalic and atraumatic FACE & SINUS: normal facial exam NOSE: Normal nasal mucous membranes and turbinates present Eye: COMMON NORMALS: Equal, round and reactive pupils present, EOMs intact bilaterally and conjunctivae normal GENERAL EYE: appearance normal, both eyes and all related structures CONJUNCTIVA: Yes conjunctivae normal PUPIL: Yes Equal, round and reactive pupils present OTHER: There was some slight deviation of the left eye medially. Patient states this is new. Neck/C-Spine: COMMON NORMALS: supple and no JVD Chest: COMMONS NORMALS: normal inspection of the chest Resp: COMMON NORMALS: normal respiratory effort and clear to auscultation bilaterally AUSCULTATION: clear to auscultation bilaterally Cardio: COMMON NORMALS: no JVD, regular rate, regular rhythm, No gallops present (Cardio), No murmurs present (Cardio) and No rub (Cardio) RATE: regular rate RHYTHM: regular rhythm GI: COMMON NORMALS: Normal to inspection, nondistended, normoactive bowel sounds present, Soft to palpation and non-tender AUSCULTATION: Yes normoactive bowel sounds PALPATION: Yes Soft to palpation : COMMON NORMALS: Yes no CVA tenderness BLADDER/KIDNEY EXAM: Yes no CVA tenderness Back/Pelvis: COMMON NORMALS: no CVA tenderness and thoracic and lumbar spine normal to inspection Extremity: COMMON NORMALS: normal to inspection Neuro: COMMON NORMALS: patient oriented x3 and CN's II-XII intact bilaterally Psych: COMMON NORMALS: mental status grossly normal, Normal thought process present and cooperative THOUGHT PROCESS: Normal thought process present Skin: COMMON NORMALS: no rashes or lesions noted, turgor normal and no jaundice GENERAL SKIN EXAM: no rashes or lesions noted and turgor normal Course Vital Signs: Vital signs: Vital Signs Temperature 98.0 F 03/25/24 15:50 Pulse Rate 91 03/25/24 15:50 Respiratory Rate 16 03/25/24 15:50 Blood Pressure 122/84 03/25/24 15:50 Pulse Oximetry 98 03/25/24 15:50 MDM - Headache Medical Decision Making Head CT was read by the radiologist as normal. We did give the patient 5 mg of Compazine IV. Patient left AGAINST MEDICAL ADVICE prior to the reading on the CT. Lab Data Radiology Impressions Head CT 03/25/24 16:31 IMPRESSION: No CT evidence of acute intracranial pathology. All radiology interpretation(s) finalized by discharge Discharge Plan Discharge Patient Disposition: Left Against Medical Advice Clinical Impression: Headache Prescriptions: No Action cholecalciferol (vitamin D3) 1,250 mcg (50,000 unit) capsule 50,000 unit PO ONCE Qty: 14 5RF medroxyprogesterone 150 mg/mL suspension See Rx Instructions .ROUTE .COMPLEX Qty: 1 2RF Dose Instruction: inject 150mg INTRAMUSCULARLY ONCE Rx Instructions: inject 150mg INTRAMUSCULARLY ONCE EpiPen 0.3 mg/0.3 mL auto-injector 0.3 mg IM Q10M PRN (Reason: anaphylaxis) Qty: 2 0RF Rx Instructions: for 2 doses Coding Level of Care Code ED Patient Care Specialist for Chg Sam
== END 2024-03-25 17:38 | disposition left against medical advice (07) ==
PROVIDERS: Emergency Provider Emergency Medicine
DX: R51.9 Headache, unspecified (principal)
CPT/HCPCS: 70450; 96374; 99285; J0780

== ENCOUNTER 2024-04-03 08:30 | Oncology outpatient (recurring) (ONCR) | payer MEDICAID, SELFPAY ==
--- NOTE | 2024-03-28 16:50 | PC.NURSE ---
Received call from Marline with Dr. Malcolm's office. Marline states pt is no longer moving out of [place] and would like to receive IVIG infusion. Order is currently valid until September 2024. Verified Dr. Malcolm would like pt to receive 25mg benadryl IVP, not PO. Order has both marked. Treatment plan in place. EDILIA
[2024-04-02] VITALS (9 sets, daily range): BP systolic 94–102; BP diastolic 57–66; PULSE 70–85; RESP 16; TEMP 36.8–37.3; O2SAT 98–99
[2024-04-02] MEDS: diphenhydrAMINE 25 mg Capsule PO (13:46)
[2024-04-02] MEDS: acetaminophen 325 mg Tablet 650 MG PO (13:46)
[2024-04-02] MEDS: immune globulin (Privigen ONC) 40 GM in empty flexible container 1 EACH IV (14:27)
[2024-04-03] VITALS (9 sets, daily range): BP systolic 90–110; BP diastolic 50–74; PULSE 57–71; RESP 15–16; TEMP 36.8–37.7; O2SAT 98–99
--- NOTE | 2024-04-03 08:13 | PC.NURSE ---
Called neuro payroll manager Mary Lou Miranda regarding pts IVIG treatment. Maintenance dose was order for 40gm instead of 5 day loading dose of 20gm for 5 days. Per Mary Lou, she spoke with Dr. Nicole, pt is to receive 3 more days of IVIG 20gm daily to total up to the 100gm dosage.
[2024-04-03] MEDS: acetaminophen 325 mg Tablet 650 MG PO (08:30)
[2024-04-03] MEDS: diphenhydrAMINE 50 mg/mL SDV 1mL 25 MG IVP (08:31)
[2024-04-03] MEDS: IMMUNE GLOBULIN IV (09:06)
[2024-04-03] MEDS: FLEXIBLE CONTAINER IV (09:06)
== END 2024-04-03 23:59 | disposition home or self-care (01) ==
PROVIDERS: Visit Provider Psychiatry & Neurology Neurology
DX: G70.00 Myasthenia gravis without (acute) exacerbation (principal); Z79.899 Other long term (current) drug therapy; Z53.9 Procedure and treatment not carried out, unspecified reason
CPT/HCPCS: 96365; 96366; 96375; J1200; J1459

== ENCOUNTER 2024-04-03 19:45 | Emergency (ER) | payer MEDICAID, SELFPAY ==
[2024-04-03 19:49] VITALS: BP 115/71; PULSE 98; RESP 14; TEMP 36.7; O2SAT 98; BMI 16.5
[2024-04-03 22:04] VITALS: BP 129/83; PULSE 99; RESP 16; O2SAT 100
--- NOTE | 2024-04-03 22:06 | CTR_ITS ---
PROCEDURE INFORMATION: Exam: CT Head Without Contrast Exam date and time: 04/03/2024 10:20 PM Age: 29 years old Clinical indication: Pain; Headache; Migraine; Aura effect not specified; Additional info: Worst headache of her life TECHNIQUE: Imaging protocol: Computed tomography of the head without contrast. Radiation optimization: All CT scans at this facility use at least one of these dose optimization techniques: automated exposure control; mA and/or kV adjustment per patient size (includes targeted exams where dose is matched to clinical indication); or iterative reconstruction. COMPARISON: CT head wo con* [id number] 03/25/2024 4:45 PM RADIATION DOSE METRICS: Total DLP (mGy-cm): 1081.48 FINDINGS: Brain: Normal. No hemorrhage. Unremarkable white matter. No mass effect. Cerebral ventricles: No ventriculomegaly. Paranasal sinuses: Visualized sinuses are unremarkable. No fluid levels. Mastoid air cells: Visualized mastoid air cells are well aerated. Bones: Unremarkable. No acute fracture. Soft tissues: Unremarkable. CT/CT head wo con* [id number] IMPRESSION: No acute intracranial abnormality.
[2024-04-03] MEDS: metoclopramide 5 mg/mL SDV 2 mL 10 MG IVP (22:12)
[2024-04-03] MEDS: sodium chloride 0.9% 1,000 ML 999 ML IV (22:12)
[2024-04-03] MEDS: dexamethasone 10 mg/mL INJ IVP (22:12)
[2024-04-03] MEDS: morphine 4 mg/mL SDV 1 mL IVP (22:12)
[2024-04-03] MEDS: diphenhydrAMINE 50 mg/mL SDV 1mL IVP (22:13)
--- NOTE | 2024-04-03 22:38 | W.ED.HA ---
HPI - Headache General: Chief Complaint: Headache Stated Complaint: Infusion\Headaches Time Seen by Provider: 04/03/24 22:00 History of Present Illness: Patient presents to the ER with complaints of worsening of her life. She said she has history of migraines but this is worse whenever. Started At the base of her skull wraps around all the way to the front around her whole entire head. Patient says she just darted her dosing of IV medicine for myasthenia gravis yesterday. He accidentally double dosed her. Headache did not start immediately after that but did start today. Patient says she had low-grade fever of 99.1 today but denies any cough cold sore throats otherwise overt sickness. Related Data Previous Rx's Medication Instructions Recorded epinephrine 0.3 mg/0.3 mL 0.3 mg (0.3 mL) IM Q10M PRN 04/12/23 injection, auto-injector (EpiPen) anaphylaxis #2 ea cholecalciferol (vitamin D3) 1,250 50,000 unit PO .COMPLEX #5 caps 03/28/24 mcg (50,000 unit) capsule Allergies Allergy/AdvReac Type Severity Reaction Status Date / Time ibuprofen Allergy ALGY-Hives Verified 03/25/24 15:50 Review of Systems General: Reports: 10 or more systems reviewed and unremarkable except in HPI and below PFSH ED PFSH: Medical History Compression fracture of T8 vertebra (~2013) Traumatic- 2014 Migraines (~2010) Has had migraines since about 2010 and denies having auras. She initially saw Dr. Nicole and then saw her neurologist Dr. Desai and has been on medication in the past. States that she has not taken any medication for migraines since at least 2018 and just takes Tylenol as needed. Asthma Mainly had symptoms when she was younger. Used an albuterol inhaler as needed. Denies intubations or hospitalizations for asthma. Last asthma attack was at the age of 20. Surgical History History of cholecystectomy (~2015) 2016--laparoscopic procedure performed by Dr. Garnica at [facility] [place]. Family History Father Heart disease Stroke Grandmother Heart disease Paternal Hypercholesteremia Paternal Hypertension Paternal Thyroid disease Paternal Other Weakness Denies family history of Colon cancer Ovarian cancer Diabetes Breast cancer Uterine cancer Social History Smoking and tobacco/nicotine status: never used tobacco/nicotine Alcohol intake: never Substance/Drug Use: never Physical Exam Const: COMMON NORMALS: no acute distress, average body habitus, patient oriented x3, no limitations, healthy appearing, alert and well nourished HENMT: COMMON NORMALS: normocephalic, atraumatic, hearing grossly normal bilaterally, external ears normal, Normal external nose present and moist oral mucous membranes HEAD & SCALP: normocephalic and atraumatic NOSE: Normal external nose present EXTERNAL EAR: Yes external ears normal Neck/C-Spine: COMMON NORMALS: full ROM, no lymphadenopathy, supple, no meningeal signs, no JVD and Thyroid normal THYROID: Thyroid normal Chest: COMMONS NORMALS: normal inspection of the chest and normal palpation of entire chest wall Resp: COMMON NORMALS: normal respiratory effort, No retractions, No use of accessory muscles and clear to auscultation bilaterally AUSCULTATION: clear to auscultation bilaterally Cardio: COMMON NORMALS: no JVD, regular rate, regular rhythm, S1 normal heart sound present, S2 normal heart sound present, No gallops present (Cardio), No clicks present (Cardio), No murmurs present (Cardio) and No rub (Cardio) RATE: regular rate RHYTHM: regular rhythm HEART SOUNDS: S1 normal heart sound present and S2 normal heart sound present GI: COMMON NORMALS: Normal to inspection, nondistended, normoactive bowel sounds present, Soft to palpation, non-tender, No hepatosplenomegaly present and no masses PALPATION: Yes Soft to palpation and Yes No hepatosplenomegaly present Neuro: COMMON NORMALS: patient oriented x3 SENSORIUM/ORIENTATION: Yes alert MENINGEAL SIGNS: Yes no meningeal signs Course Vital Signs: Vital signs: Vital Signs Temperature 98.1 F 04/03/24 19:49 Pulse Rate 93 04/04/24 01:08 Respiratory Rate 16 04/04/24 01:00 Blood Pressure 114/71 04/04/24 01:08 Pulse Oximetry 100 04/04/24 01:08 Oxygen Delivery Me thod Room Air 04/03/24 22:04 MDM - Headache Medical Decision Making Head CT is read off as negative, patient received liter normal saline, 4 mg morphine, 10 mg Reglan, 50 mg Benadryl, 10 mg dexamethasone, and this essentially made her headache go away. Patient will be discharged. Medical Records I reviewed the patient's medical records. Lab Data I reviewed the patient's lab results. Radiology Impressions Head CT 04/03/24 22:06 IMPRESSION: No acute intracranial abnormality. All radiology interpretation(s) finalized by discharge Discharge Plan Discharge Patient Disposition: Home Clinical Impression: Migraine Qualifiers: Migraine type: unspecified Status migrainosus presence: without status migrainosus Intractability: not intractable Qualified Code(s): G43.909 - Migraine, unspecified, not intractable, without status migrainosus Condition: Stable Prescriptions: No Action cholecalciferol (vitamin D3) 1,250 mcg (50,000 unit) capsule 50,000 unit PO .COMPLEX Qty: 5 4RF Rx Instructions: 50,000 units orally weekly; EpiPen 0.3 mg/0.3 mL auto-injector 0.3 mg IM Q10M PRN (Reason: anaphylaxis) Qty: 2 0RF Rx Instructions: for 2 doses Discharge Orders: Discharge ED (Routine); Ordered 04/04/24 Ordered By: Frank Velásquez Patient Instructions: Headache - Migraine (Adult) Activity Restrictions/Additional Instructions: Thank you for choosing [facility] for your healthcare needs today. Please realize that you were seen in the emergency department and that we are providing you with an emergency medical screening exam and this may not be a complete and all exclusive of all testing and/or medical workup we may need to determine your element or severity of your illness. It is very important that you follow-up as instructed with your primary care provider or specialist for the additional evaluation and to discuss your medical treatment plan. You may return to the emergency department should you have concerns or if your condition changes or worsens in any way. 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
[2024-04-03 22:39] VITALS: BP 109/69; PULSE 91; RESP 16; O2SAT 98
[2024-04-03 23:00] VITALS: BP 92/50; PULSE 96; O2SAT 100
[2024-04-03 23:30] VITALS: BP 95/58; PULSE 100; O2SAT 100
[2024-04-04 01:00] VITALS: BP 114/71; PULSE 90; RESP 16; O2SAT 100
[2024-04-04 01:08] VITALS: BP 114/71; PULSE 93; O2SAT 100
== END 2024-04-04 01:09 | disposition home or self-care (01) ==
PROVIDERS: Emergency Provider Emergency Medicine
DX: G43.909 Migraine, unspecified, not intractable, without status migrainosus (principal)
CPT/HCPCS: 70450; 96374; 96375; 99285; J1100; J1200; J2270; J2765; J7030

== ENCOUNTER 2024-04-05 08:01 | Oncology outpatient (recurring) (ONCR) | payer MEDICAID, SELFPAY ==
[2024-04-05] VITALS (10 sets, daily range): BP systolic 104–122; BP diastolic 66–81; PULSE 16–103; RESP 16–69; TEMP 36.6–37.4; O2SAT 97–99
[2024-04-05] MEDS: sodium chloride 0.9% 250 ML 75 ML IV (08:40)
[2024-04-05] MEDS: diphenhydrAMINE 50 mg/mL SDV 1mL 25 MG IVP (08:44)
[2024-04-05] MEDS: acetaminophen 325 mg Tablet 650 MG PO (08:46)
[2024-04-05] MEDS: FLEXIBLE CONTAINER IV (10:42)
[2024-04-05] MEDS: IMMUNE GLOBULIN IV (10:42)
[2024-04-05] MEDS: valproic acid inj 500 MG in sodium chloride 0.9% 50 ML 132 MG IV (14:03)
== END 2024-04-14 23:59 | disposition home or self-care (01) ==
LOC: ONCMED 08:01
PROVIDERS: Visit Provider Psychiatry & Neurology Neurology
DX: Z79.899 Other long term (current) drug therapy (principal); G70.00 Myasthenia gravis without (acute) exacerbation
CPT/HCPCS: 96365; 96366; 96367; 96375; J1200; J1459; J2919; J3490; J7050